=== PATIENT | male | born 1960 | race African-American/Black ===

== ENCOUNTER 2016-08-15 00:10 | Inpatient (IN) | payer MEDICAID ==
[~2016-08-15] VITALS: Ht 182.9 cm; Wt 97.5 kg
[~2016-08-15 00:10] MED LIST: AMLO10TA80 PO; ASPI-1035 PO; ATOR80TA76 PO; CARV20CP PO; CLON0.2T PO; FERR-63 PO; FOLI1CAP6 PO; FURO40TA5 PO; GABA-529 PO; HYDR-4135 PO; IBUP100O15 PO; ISOS60TA4 PO; LACT10SO6 PO; NIFE60TA64 PO; RENA-VITE PO; SEVE800T8 PO; TAMS0.4C31 PO
[2016-08-15] MEDS ORDERED: ASPIRIN 81MG TABLET PO ONE (01:30)
[2016-08-15] MEDS ORDERED: NITROGLYCERIN 0.4MG TABLET SL SL PRN (01:30)
[2016-08-15] MEDS ORDERED: HYDRALAZINE 20MG/ML VIAL IV ONE (01:30)
[2016-08-15 02:05] LABS: CHLORIDE 93 mEq/L (98-107); INDEX HEMOLYSI 2 (1-3); INDEX ICTERIC 1 (1-4); INDEX LIPEMIC 2 (1-3)
[2016-08-15 02:11] LABS: INR 1.1; PROTHROMBIN TIME 11.3 sec
[2016-08-15 02:13] LABS: ALANINE AMINOTRANSFERASE 27 IU/L (13-61); ALBUMIN 3.2 g/dL (3.4-5.0); ANION GAP 21; CALCIUM 8.2 mg/dL (8.5-10.1); CARBON DIOXIDE 24 mEq/L (21-32); ETHANOL BLOOD < 10 mg/dL; LIPASE 242 IU/L (73-393); UREA NITROGEN BLOOD 65 mg/dL (7-21); eGFR 5 mL/min (>60)
[2016-08-15 02:15] LABS: BASOPHILS % 0.5 % (0.0-2.0); DIFFERENTIAL COMMENT 0; EOSINOPHILS % 1.5 % (0.0-5.0); HEMATOCRIT. 32.1 % (42.0-52.0); HEMOGLOBIN. 10.3 g/dL (14.0-18.0); LYMPHOCYTES % 24.7 % (20.0-50.0); MEAN CORPUSCULAR HEMOGLOBIN 25.4 pg (28.0-32.0); MEAN CORPUSCULAR HGB CONC 32.3 g/dL (31.0-37.0); MEAN CORPUSCULAR VOLUME 78.7 fL (80.0-94.0); MEAN PLATELET VOLUME 8.2 fl (7.4-10.4); MONOCYTES % 13.9 % (2.0-8.0); NEUTROPHILS % 59.4 % (40.0-76.0); PLATELET 262 x1000/uL (130-400); RED BLOOD CELL COUNT 4.07 mill/uL (4.7-6.1); RED CELL DISTRIBUTION WIDTH 20.4 % (11.6-14.6); WHITE BLOOD COUNT 4.3 x1000/uL (4.5-11.0)
[2016-08-15] MEDS ORDERED: SODIUM CHLORIDE 0.9% 1000ML BAG (SEPSIS BOLUS) IV NR (02:15)
[2016-08-15 02:30] LABS: NT PRO B-TYPE NATRIURETIC PEP 16240 pg/mL (5-125); TROPONIN I < 0.02 ng/mL (0.00-0.04)
[2016-08-15 09:00] VITALS: BP 207/111
[2016-08-15] MEDS ORDERED: DOCUSATE SODIUM 100MG CAPSULE PO PRN (09:00)
[2016-08-15] MEDS ORDERED: IPRATROPIUM/ALBUTEROL 0.5-3(2.5)MG/3ML NEB INH PRN (09:00)
[2016-08-15] MEDS ORDERED: CLONIDINE 0.1MG TABLET PO PRN (09:00)
[2016-08-15] MEDS ORDERED: GUAIFENESIN 200MG/10ML SUGAR FREE UDC PO PRN (09:00)
[2016-08-15] MEDS ORDERED: ACETAMINOPHEN 650MG/20.3ML UDC GT PRN (09:00)
[2016-08-15] MEDS ORDERED: NA PHOS,M-B/NA PHOS,DI-BA ENEMA 118ML PR PRN (09:00)
[2016-08-15] MEDS ORDERED: DEXTROSE 50% WATER 50ML SYRINGE IV PRN (09:00)
[2016-08-15] MEDS ORDERED: DIPHENHYDRAMINE 50MG/ML VIAL IV PRN ×2 (09:00→19:00)
[2016-08-15] MEDS ORDERED: ACETAMINOPHEN 325MG TABLET PO PRN (09:00)
[2016-08-15] MEDS ORDERED: MAGNESIUM/ALUMINUM HYDROXIDE/SIMETHICONE 30ML UDC PO PRN (09:00)
[2016-08-15] MEDS ORDERED: ONDANSETRON HCL 4MG/2ML VIAL IV PRN (09:00)
[2016-08-15] MEDS ORDERED: ACETAMINOPHEN 650MG SUPP PR PRN (09:00)
[2016-08-15] MEDS: GABAPENTIN 100MG CAPSULE PO SCH ×4 (09:15→20:58)
[2016-08-15] MEDS: ISOSORBIDE MONONITRATE 60MG TABLET SR 24HR PO SCH (09:29)
[2016-08-15] MEDS: HYDRALAZINE HCL 25MG TABLET PO SCH ×2 (09:29→20:58)
[2016-08-15] MEDS: AMLODIPINE 10MG TABLET PO SCH (09:30)
[2016-08-15] MEDS: HYDROCODONE/ACETAMINOPHEN 5/325MG TABLET PO PRN (09:31)
[2016-08-15 10:47] VITALS: BP 207/111
[2016-08-15 11:59] VITALS: BP 180/103
[2016-08-15] MEDS: BLOOD SUGAR DIAGNOSTIC STRIP TEST SCH ×4 (12:11→20:09)
[2016-08-15] MEDS: INSULIN LISPRO 100 UNITS/ML SUBCUT SCH ×4 (12:24→21:01)
[2016-08-15] MEDS: SODIUM CHLORIDE 0.9% INJ 3ML FLUSH IVF SCH ×2 (13:12→20:58)
[2016-08-15] MEDS: CLONIDINE 0.2MG TABLET PO SCH ×2 (13:12→20:58)
[2016-08-15] MEDS ORDERED: FOLI0.8T23 PO (13:23)
[2016-08-15 15:18] LABS: GLUCOSE URINE 1+ (NEGATIVE); KETONES URINE NEGATIVE (NEGATIVE); LEUKOCYTE ESTERASE URINE NEGATIVE (NEGATIVE); NITRITE URINE NEGATIVE (NEGATIVE); OCCULT BLOOD URINE TRACE (NEGATIVE); PROTEIN URINE 2+ (NEGATIVE); SPECIFIC GRAVITY URINE 1.007 (1.005-1.030); UROBILINOGEN URINE 0.2 E.U./dL (0.2-1.0)
[2016-08-15 15:24] LABS: CLARITY URINE CLEAR (CLEAR); COLOR URINE YELLOW (YELLOW)
[2016-08-15 15:25] LABS: BACTERIA URINE TRACE; RBC URINE 0-2 /hpf (0-2); SQUAMOUS EPITHELIAL CELL URINE NONE SEEN /lpf (RARE/1+); WBC URINE 0-2 /hpf (0-2)
[2016-08-15 15:28] LABS: *AMPHETAMINES SCREEN URINE NEGATIVE (NEGATIVE); *BARBITURATES SCREEN URINE NEGATIVE (NEGATIVE); *BENZODIAZEPINES SCREEN URINE NEGATIVE (NEGATIVE); *COCAINE SCREEN URINE NEGATIVE (NEGATIVE); CANNABINOID URINE SCREEN NEGATIVE (NEGATIVE); ECSTASY MDMA SCREEN URINE NEGATIVE (NEGATIVE); METHADONE URINE SCREEN NEGATIVE (NEGATIVE); OPIATES URINE SCREEN NEGATIVE (NEGATIVE); PHENCYCLIDINE URINE SCREEN NEGATIVE (NEGATIVE)
[2016-08-15 16:00] VITALS: BP 175/112
[2016-08-15] MEDS ORDERED: DIPHENHYDRAMINE 50MG CAPSULE PO PRN (16:30)
[2016-08-15] MEDS: ENOXAPARIN 40MG/0.4ML SYR SUBCUT SCH (16:33)
[2016-08-15 20:00] VITALS: BP 190/108
[2016-08-16] VITALS (15 sets, daily range): BP systolic 131–220; BP diastolic 80–122
[2016-08-16] MEDS ORDERED: HYDRALAZINE 20MG/ML VIAL IV PRN (05:15)
[2016-08-16] MEDS: GABAPENTIN 100MG CAPSULE PO SCH ×2 (06:00→13:17)
[2016-08-16] MEDS: BLOOD SUGAR DIAGNOSTIC STRIP TEST SCH ×3 (06:09→17:48)
[2016-08-16] MEDS: SODIUM CHLORIDE 0.9% INJ 3ML FLUSH IVF SCH ×2 (06:09→13:12)
[2016-08-16] MEDS: CLONIDINE 0.2MG TABLET PO SCH ×2 (06:09→13:23)
[2016-08-16] MEDS: INSULIN LISPRO 100 UNITS/ML SUBCUT SCH ×3 (08:10→17:48)
[2016-08-16] MEDS: AMLODIPINE 10MG TABLET PO SCH (08:39)
[2016-08-16] MEDS: HYDRALAZINE HCL 25MG TABLET PO SCH (08:39)
[2016-08-16] MEDS: ISOSORBIDE MONONITRATE 60MG TABLET SR 24HR PO SCH (08:40)
[2016-08-16] MEDS ORDERED: TAMSULOSIN HCL 0.4MG SR CAPSULE PO SCH (09:00)
[2016-08-16] MEDS ORDERED: FENTANYL CITRATE/PF 50MCG/ML 2ML VIAL IV SCH ×2 (10:45→11:15)
[2016-08-16] MEDS ORDERED: DIPHENHYDRAMINE 50MG/ML VIAL IV SCH (10:45)
[2016-08-16] MEDS ORDERED: CEFAZOLIN 1000MG PREMIX 50 ML IV SCH (11:30)
[2016-08-16] MEDS: HYDROCODONE/ACETAMINOPHEN 5/325MG TABLET PO PRN (14:18)
[2016-08-16] MEDS ORDERED: HEPARIN SODIUM 1,000 UNIT/1ML VIAL IV SCH (15:45)
[2016-08-16 16:03] LABS: BASOPHILS % 0.5 % (0.0-2.0); DIFFERENTIAL COMMENT 0; EOSINOPHILS % 1.4 % (0.0-5.0); HEMATOCRIT. 30.2 % (42.0-52.0); HEMOGLOBIN. 9.7 g/dL (14.0-18.0); LYMPHOCYTES % 20.3 % (20.0-50.0); MEAN CORPUSCULAR HEMOGLOBIN 25.4 pg (28.0-32.0); MEAN CORPUSCULAR HGB CONC 32.1 g/dL (31.0-37.0); MEAN CORPUSCULAR VOLUME 79.2 fL (80.0-94.0); MEAN PLATELET VOLUME 7.9 fl (7.4-10.4); NEUTROPHILS % 66.8 % (40.0-76.0); PLATELET 253 x1000/uL (130-400); RED BLOOD CELL COUNT 3.81 mill/uL (4.7-6.1); RED CELL DISTRIBUTION WIDTH 20.4 % (11.6-14.6); WHITE BLOOD COUNT 4.7 x1000/uL (4.5-11.0)
[2016-08-16 16:22] LABS: ALANINE AMINOTRANSFERASE 33 IU/L (13-61); ALBUMIN 3.2 g/dL (3.4-5.0); ANION GAP 23; CALCIUM 8.2 mg/dL (8.5-10.1); CARBON DIOXIDE 23 mEq/L (21-32); CHLORIDE 94 mEq/L (98-107); CREATINE KINASE MB FRACTION 3.5 ng/mL (0.5-3.6); INDEX HEMOLYSI 1 (1-3); INDEX ICTERIC 1 (1-4); INDEX LIPEMIC 1 (1-3); LDL CHOLESTEROL 41 mg/dL (5-100); NT PRO B-TYPE NATRIURETIC PEP 18153 pg/mL (5-125); TRIGLYCERIDE 288 mg/dL (0-150); TROPONIN I < 0.02 ng/mL (0.00-0.04); eGFR 5 mL/min (>60)
[2016-08-16 16:25] LABS: CREATINE KINASE 156 IU/L (39-308); HDL CHOLESTEROL 28 mg/dL (40-59); UREA NITROGEN BLOOD 79 mg/dL (7-21)
[2016-08-16 16:28] LABS: T4 FREE 0.98 ng/dL (0.76-1.46)
[2016-08-16] MEDS ORDERED: MORPHINE SULFATE 2 MG/ML CPJ (NOT FOR IM USE) IV NR (16:45)
[2016-08-16] MEDS: ENOXAPARIN 40MG/0.4ML SYR SUBCUT SCH (17:00)
[2016-08-16] MEDS ORDERED: TRAM50TA73 PO (19:00)
== END 2016-08-16 19:40 | disposition home or self-care (01) | DRG 167 ==
LOC: ER 05:09 → 5WST 05:10 → 7WST 16:50
PROVIDERS: ADMIT Family Medicine; ATTEND Family Medicine
PROC: 02H633Z Insertion of Infusion Device into Right Atrium, Percutaneous Approach (ICD-10-PCS; principal; 2016-08-16)
PROC: B2141ZZ Fluoroscopy of Right Heart using Low Osmolar Contrast (ICD-10-PCS; 2016-08-16)
PROC: 02PA33Z Removal of Infusion Device from Heart, Percutaneous Approach (ICD-10-PCS; 2016-08-16)
PROC: B244ZZZ Ultrasonography of Right Heart (ICD-10-PCS; 2016-08-16)
PROC: 5A1D00Z (ICD-10-PCS; 2016-08-16)
DX: T82.49XA Other complication of vascular dialysis catheter, initial encounter (principal); I13.2 Hypertensive heart and chronic kidney disease with heart failure and with stage 5 chronic kidney disease, or end stage renal disease; E11.22 Type 2 diabetes mellitus with diabetic chronic kidney disease; N18.6 End stage renal disease; Y84.1 Kidney dialysis as the cause of abnormal reaction of the patient, or of later complication, without mention of misadventure at the time of the procedure; R07.9 Chest pain, unspecified; E44.1 Mild protein-calorie malnutrition; D63.8 Anemia in other chronic diseases classified elsewhere; E66.9 Obesity, unspecified; E78.5 Hyperlipidemia, unspecified; F17.210 Nicotine dependence, cigarettes, uncomplicated; I16.0 Hypertensive urgency; I50.9 Heart failure, unspecified; Z68.29 Body mass index [BMI] 29.0-29.9, adult; Z82.49 Family history of ischemic heart disease and other diseases of the circulatory system; Z91.19 Patient's noncompliance with other medical treatment and regimen; Y92.89 Other specified places as the place of occurrence of the external cause; Z99.2 Dependence on renal dialysis
CPT/HCPCS: 36415; 36558; 36589; 70450; 71010; 75827; 76937; 77001; 80053; 80061; 80305; 81001; 82550; 82553; 82962; 83036; 83605; 83690; 83880; 84439; 84443; 84484; 85025; 85379; 85610; 86850; 86900; 93005; 93970; 96374; 99291; C1725; C1750; C1769; G0482; J0360; J0690; J1200; J1644; J1650; J1815; J2270; L8514; Q0163

== ENCOUNTER 2016-09-25 21:53 | Emergency (ER) | payer MEDICAID ==
[~2016-09-25] VITALS: Ht 182.9 cm; Wt 98.0 kg
[~2016-09-25 21:53] MED LIST changes: -FERR-63 PO; +FOLI0.8T23 PO; -FOLI1CAP6 PO; -GABA-529 PO; -IBUP100O15 PO; -LACT10SO6 PO; -RENA-VITE PO; +TRAM50TA73 PO
[2016-09-25] MEDS ORDERED: FAMOTIDINE 20MG/2ML VIAL IV STA (22:46)
[2016-09-25] MEDS ORDERED: SODIUM CHLORIDE 0.9% 500 ML IV ONE (22:46)
[2016-09-25] MEDS ORDERED: ONDANSETRON HCL 4MG/2ML VIAL IV STA (22:46)
[2016-09-25] MEDS ORDERED: DIPHENHYDRAMINE 25MG CAPSULE PO ONE (23:00)
[2016-09-25 23:21] LABS: BASOPHILS % 1.5 % (0.0-2.0); EOSINOPHILS % 1.2 % (0.0-5.0); HEMATOCRIT. 40.7 % (42.0-52.0); HEMOGLOBIN. 12.9 g/dL (14.0-18.0); LYMPHOCYTES % 23.5 % (20.0-50.0); MEAN CORPUSCULAR HEMOGLOBIN 25.4 pg (28.0-32.0); MEAN CORPUSCULAR HGB CONC 31.7 g/dL (31.0-37.0); MEAN PLATELET VOLUME 7.9 fl (7.4-10.4); MONOCYTES % 12.6 % (2.0-8.0); NEUTROPHILS % 61.2 % (40.0-76.0); PLATELET 257 x1000/uL (130-400); RED BLOOD CELL COUNT 5.08 mill/uL (4.7-6.1); RED CELL DISTRIBUTION WIDTH 19.7 % (11.6-14.6); WHITE BLOOD COUNT 6.1 x1000/uL (4.5-11.0)
[2016-09-25 23:24] LABS: CHLORIDE 95 mEq/L (98-107); INDEX HEMOLYSI 1 (1-3); INDEX ICTERIC 1 (1-4); INDEX LIPEMIC 1 (1-3)
[2016-09-25 23:26] LABS: INR 1.1; PROTHROMBIN TIME 11.7 sec
[2016-09-25 23:32] LABS: ALANINE AMINOTRANSFERASE 31 IU/L (13-61); ALBUMIN 3.9 g/dL (3.4-5.0); CALCIUM 8.6 mg/dL (8.5-10.1); CARBON DIOXIDE 24 mEq/L (21-32); LIPASE 740 IU/L (73-393); UREA NITROGEN BLOOD 61 mg/dL (7-21); eGFR 5 mL/min (>60)
[2016-09-25 23:36] LABS: ANION GAP 22
[2016-09-26] MEDS ORDERED: SODIUM POLYSTYRENE SULFONATE 15 G/60 ML BOT PO ONE
[2016-09-26 01:33] VITALS: BP 173/96
== END 2016-09-26 02:09 | disposition home or self-care (01) ==
LOC: ER 22:44
DX: K86.0 Alcohol-induced chronic pancreatitis (principal); I12.9 Hypertensive chronic kidney disease with stage 1 through stage 4 chronic kidney disease, or unspecified chronic kidney disease; E87.5 Hyperkalemia; R11.2 Nausea with vomiting, unspecified; R10.13 Epigastric pain; E11.9 Type 2 diabetes mellitus without complications; F17.200 Nicotine dependence, unspecified, uncomplicated; Z99.2 Dependence on renal dialysis; Z79.82 Long term (current) use of aspirin; Z79.899 Other long term (current) drug therapy
CPT/HCPCS: 36415; 80053; 83605; 83690; 85025; 85610; 93005; 96361; 96374; 96375; 99285; G0482; J2405; J3490; J7040; Z7610; J7030; Q0163

== ENCOUNTER 2016-11-18 23:35 | Emergency (ER) | payer MEDICAID ==
[~2016-11-18] VITALS: Ht 182.9 cm; Wt 95.0 kg
[~2016-11-18 23:35] MED LIST changes: -AMLO10TA80 PO; -ASPI-1035 PO; +ATOR-2 PO; -ATOR80TA76 PO; -CARV20CP PO; +CARV25TA47 PO; -FURO40TA5 PO; +GABA-529 PO; -ISOS60TA4 PO; -NIFE60TA64 PO
[2016-11-19 00:05] VITALS: BP 180/94
== END 2016-11-19 02:00 | disposition home or self-care (01) ==
LOC: ER 23:35
DX: E87.70 Fluid overload, unspecified (principal); E11.9 Type 2 diabetes mellitus without complications; I12.0 Hypertensive chronic kidney disease with stage 5 chronic kidney disease or end stage renal disease; E11.22 Type 2 diabetes mellitus with diabetic chronic kidney disease; N18.6 End stage renal disease
CPT/HCPCS: 99283; Z7610

== ENCOUNTER 2017-02-09 04:55 | Inpatient (IN) | payer MEDICAID ==
[~2017-02-09] VITALS: Ht 182.9 cm; Wt 111.6 kg
[2017-02-09] MEDS ORDERED: MORPHINE SULFATE 4 MG/ML CPJ (NOT FOR IM USE) IV STA (07:56)
[2017-02-09] MEDS ORDERED: ONDANSETRON HCL 4MG/2ML VIAL IV STA (07:56)
[2017-02-09 08:23] LABS: CARBON DIOXIDE 21 mEq/L (21-32); CHLORIDE 93 mEq/L (98-107)
[2017-02-09 08:24] LABS: INR 1.2; PARTIAL THROMBOPLASTIN TIME 32.9 sec (23.4-31.0); PROTHROMBIN TIME 12.4 sec (9.4-11.6)
[2017-02-09 08:35] LABS: HEMATOCRIT. 38.2 % (42.0-52.0); HEMOGLOBIN. 12.3 g/dL (14.0-18.0); MEAN CORPUSCULAR VOLUME 77.4 fL (80.0-94.0); MEAN PLATELET VOLUME 8.9 fl (7.4-10.4); PLATELET 177 x1000/uL (130-400); RED BLOOD CELL COUNT 4.94 mill/uL (4.7-6.1); RED CELL DISTRIBUTION WIDTH 16.8 % (11.6-14.6)
[2017-02-09] MEDS ORDERED: SODIUM BICARBONATE 8.4% 1 MEQ/ML 50ML SYR IV ONE (08:45)
[2017-02-09] MEDS ORDERED: INSULIN REGULAR (HUMULIN R) 300UNITS/3ML IV ONE (08:45)
[2017-02-09] MEDS ORDERED: DEXTROSE 50% WATER 50ML SYRINGE IV ONE (08:45)
[2017-02-09 09:32] LABS: PLATELET ESTIMATE NORMAL
[2017-02-09] MEDS ORDERED: MAGNESIUM/ALUMINUM HYDROXIDE/SIMETHICONE 30ML UDC PO PRN (12:00)
[2017-02-09] MEDS ORDERED: ACETAMINOPHEN 325MG TABLET PO PRN (12:00)
[2017-02-09] MEDS ORDERED: CLONIDINE 0.1MG TABLET PO PRN (12:00)
[2017-02-09] MEDS ORDERED: IPRATROPIUM/ALBUTEROL 0.5-3(2.5)MG/3ML NEB INH PRN (12:00)
[2017-02-09] MEDS ORDERED: ONDANSETRON HCL 4MG/2ML VIAL IV PRN (12:00)
[2017-02-09] MEDS ORDERED: NIFEDIPINE XL 60MG TAB PO SCH (12:00)
[2017-02-09] MEDS ORDERED: DEXTROSE 50% WATER 50ML SYRINGE IV PRN ×2 (15:15→16:30)
[2017-02-09 16:18] VITALS: BP 193/110
[2017-02-09 16:19] VITALS: BP 193/110
[2017-02-09] MEDS ORDERED: ISOS30TA6 PO (16:34)
[2017-02-09] MEDS: INSULIN LISPRO 100 UNITS/ML SUBCUT SCH ×2 (16:40→20:56)
[2017-02-09] MEDS: BLOOD SUGAR DIAGNOSTIC STRIP TEST SCH ×2 (16:40→20:51)
[2017-02-09] MEDS ORDERED: BLOOD SUGAR DIAGNOSTIC STRIP TEST SCH (17:00)
[2017-02-09] MEDS: HYDROCODONE/ACETAMINOPHEN 5/325MG TABLET PO PRN ×2 (17:05→22:00)
[2017-02-09] MEDS ORDERED: MEDICATION NOT ON FORMULARY EA (Atorvastatin Calcium 80 MG) PO SCH (17:30)
[2017-02-09] MEDS ORDERED: HYDRALAZINE 20MG/ML VIAL IV PRN (17:30)
[2017-02-09 18:00] VITALS: BP 181/96
[2017-02-09] MEDS ORDERED: INSULIN LISPRO 100 UNITS/ML SUBCUT SCH (18:20)
[2017-02-09] MEDS: CLONIDINE 0.2MG TABLET PO SCH (19:13)
[2017-02-09 19:59] LABS: *AMPHETAMINES SCREEN URINE NEGATIVE (NEGATIVE); *BARBITURATES SCREEN URINE NEGATIVE (NEGATIVE); *BENZODIAZEPINES SCREEN URINE NEGATIVE (NEGATIVE); *COCAINE SCREEN URINE NEGATIVE (NEGATIVE); CANNABINOID URINE SCREEN NEGATIVE (NEGATIVE); METHADONE URINE SCREEN NEGATIVE (NEGATIVE); OPIATES URINE SCREEN NEGATIVE (NEGATIVE); PHENCYCLIDINE URINE SCREEN NEGATIVE (NEGATIVE)
[2017-02-09 20:00] VITALS: BP 165/81
[2017-02-09] MEDS: GABAPENTIN 100MG CAPSULE PO SCH (20:22)
[2017-02-09] MEDS: ATORVASTATIN CALCIUM 40MG TABLET PO SCH (20:22)
[2017-02-09] MEDS: TRAMADOL 50MG TABLET PO PRN (20:26)
[2017-02-09] MEDS: TAMSULOSIN HCL 0.4MG SR CAPSULE PO SCH (20:46)
[2017-02-09] MEDS: CARVEDILOL 25MG TABLET PO SCH (20:55)
[2017-02-09] MEDS ORDERED: CLONIDINE 0.2MG TABLET PO SCH (21:00)
[2017-02-09] MEDS: HYDRALAZINE HCL 50MG TABLET PO SCH (21:59)
[2017-02-09 22:00] VITALS: BP 184/97
[2017-02-09] MEDS: ISOSORBIDE MONONITRATE 30MG TABLET SR 24HR PO SCH (23:22)
[2017-02-10] VITALS (12 sets, daily range): BP systolic 123–183; BP diastolic 65–90
[2017-02-10] MEDS: CLONIDINE 0.2MG TABLET PO SCH ×3 (02:37→17:00)
[2017-02-10] MEDS: HYDROCODONE/ACETAMINOPHEN 5/325MG TABLET PO PRN ×4 (04:35→16:36)
[2017-02-10] MEDS: BLOOD SUGAR DIAGNOSTIC STRIP TEST SCH ×4 (06:22→21:26)
[2017-02-10] MEDS: INSULIN LISPRO 100 UNITS/ML SUBCUT SCH ×4 (06:22→21:31)
[2017-02-10] MEDS: FOLIC ACID/VITAMIN B COMP W-C TABLET PO SCH (07:53)
[2017-02-10] MEDS: TRAMADOL 50MG TABLET PO PRN (07:53)
[2017-02-10] MEDS: CARVEDILOL 25MG TABLET PO SCH ×2 (07:54→21:17)
[2017-02-10] MEDS: NIFEDIPINE XL 60MG TAB PO SCH (07:54)
[2017-02-10] MEDS: GABAPENTIN 100MG CAPSULE PO SCH ×3 (07:54→16:35)
[2017-02-10] MEDS: ISOSORBIDE MONONITRATE 30MG TABLET SR 24HR PO SCH (07:54)
[2017-02-10] MEDS ORDERED: VANCOMYCIN 1500MG in DEXTROSE 5% WATER 250ML IV SCH (08:00)
[2017-02-10] MEDS: HYDRALAZINE HCL 50MG TABLET PO SCH ×2 (09:25→23:03)
[2017-02-10] MEDS: MORPHINE SULFATE 4 MG/ML CPJ (NOT FOR IM USE) IV PRN ×3 (12:07→21:18)
[2017-02-10] MEDS: SEVELAMER CARBONATE 800 MG TABLET PO SCH (16:35)
[2017-02-10] MEDS: ATORVASTATIN CALCIUM 40MG TABLET PO SCH (21:17)
[2017-02-10] MEDS: TAMSULOSIN HCL 0.4MG SR CAPSULE PO SCH (21:17)
[2017-02-11] VITALS (13 sets, daily range): BP systolic 118–148; BP diastolic 62–101
[2017-02-11] MEDS: HYDROCODONE/ACETAMINOPHEN 5/325MG TABLET PO PRN ×3 (00:59→17:41)
[2017-02-11] MEDS: CLONIDINE 0.2MG TABLET PO SCH ×3 (01:37→17:28)
[2017-02-11] MEDS: BLOOD SUGAR DIAGNOSTIC STRIP TEST SCH ×4 (05:50→21:20)
[2017-02-11 07:21] LABS: INR 1.1; PARTIAL THROMBOPLASTIN TIME 35.7 sec (23.4-31.0); PROTHROMBIN TIME 11.7 sec (9.4-11.6)
[2017-02-11 07:25] LABS: PHOSPHORUS 7.6 mg/dL (2.5-4.9)
[2017-02-11 07:44] LABS: HEMATOCRIT. 36.8 % (42.0-52.0); HEMOGLOBIN. 11.7 g/dL (14.0-18.0); MEAN CORPUSCULAR VOLUME 78.4 fL (80.0-94.0); MEAN PLATELET VOLUME 9.3 fl (7.4-10.4); PLATELET 171 x1000/uL (130-400); RED CELL DISTRIBUTION WIDTH 16.9 % (11.6-14.6)
[2017-02-11] MEDS: INSULIN LISPRO 100 UNITS/ML SUBCUT SCH ×4 (07:47→21:27)
[2017-02-11] MEDS: SEVELAMER CARBONATE 800 MG TABLET PO SCH ×3 (07:48→17:28)
[2017-02-11] MEDS: FOLIC ACID/VITAMIN B COMP W-C TABLET PO SCH (08:05)
[2017-02-11] MEDS: NIFEDIPINE XL 60MG TAB PO SCH (08:06)
[2017-02-11] MEDS: CARVEDILOL 25MG TABLET PO SCH ×2 (08:06→21:14)
[2017-02-11] MEDS: GABAPENTIN 100MG CAPSULE PO SCH ×3 (08:06→17:28)
[2017-02-11] MEDS: ISOSORBIDE MONONITRATE 30MG TABLET SR 24HR PO SCH (08:06)
[2017-02-11] MEDS ORDERED: SODIUM BICARBONATE 4% (2.4MEQ) 5ML VIAL IV ONE (09:14)
[2017-02-11] MEDS ORDERED: LIDOCAINE HCL 1% 20ML VIAL (Pyxis) INJ ONE (09:14)
[2017-02-11] MEDS: HYDRALAZINE HCL 50MG TABLET PO SCH ×2 (11:08→23:09)
[2017-02-11] MEDS ORDERED: SEVELAMER CARBONATE 800 MG TABLET PO SCH (12:20)
[2017-02-11] MEDS: MORPHINE SULFATE 4 MG/ML CPJ (NOT FOR IM USE) IV PRN ×2 (14:10→19:36)
[2017-02-11] MEDS ORDERED: VANCOMYCIN 1 G PREMIX 200 ML IV SCH (15:00)
[2017-02-11 15:27] LABS: PLATELET ESTIMATE NORMAL
[2017-02-11] MEDS: TAMSULOSIN HCL 0.4MG SR CAPSULE PO SCH (21:14)
[2017-02-11] MEDS: ATORVASTATIN CALCIUM 40MG TABLET PO SCH (21:14)
[2017-02-11] MEDS: HEPARIN 5000 UNITS/ML VIAL SUBCUT SCH (21:15)
[2017-02-12] VITALS (13 sets, daily range): BP systolic 123–157; BP diastolic 76–85
[2017-02-12] MEDS: HYDROCODONE/ACETAMINOPHEN 5/325MG TABLET PO PRN ×2 (02:05→06:16)
[2017-02-12] MEDS: CLONIDINE 0.2MG TABLET PO SCH ×3 (02:06→17:30)
[2017-02-12] MEDS: MORPHINE SULFATE 4 MG/ML CPJ (NOT FOR IM USE) IV PRN ×2 (04:15→09:33)
[2017-02-12] MEDS: BLOOD SUGAR DIAGNOSTIC STRIP TEST SCH ×4 (06:16→21:01)
[2017-02-12 07:31] LABS: HEMATOCRIT 32.3 % (42.0-52.0); HEMOGLOBIN 10.4 g/dL (14.0-18.0); MEAN CORPUSCULAR VOLUME 77.8 fL (80.0-94.0); PLATELET 179 x1000/uL (130-400); RED BLOOD CELL COUNT 4.16 mill/uL (4.7-6.1); RED CELL DISTRIBUTION WIDTH 16.7 % (11.6-14.6)
[2017-02-12] MEDS: INSULIN LISPRO 100 UNITS/ML SUBCUT SCH ×4 (08:00→21:34)
[2017-02-12] MEDS: SEVELAMER CARBONATE 800 MG TABLET PO SCH ×3 (08:04→17:30)
[2017-02-12] MEDS: HEPARIN 5000 UNITS/ML VIAL SUBCUT SCH ×2 (09:32→21:32)
[2017-02-12] MEDS: ISOSORBIDE MONONITRATE 30MG TABLET SR 24HR PO SCH (09:33)
[2017-02-12] MEDS: GABAPENTIN 100MG CAPSULE PO SCH ×3 (09:33→17:30)
[2017-02-12] MEDS: NIFEDIPINE XL 60MG TAB PO SCH (09:33)
[2017-02-12] MEDS: CARVEDILOL 25MG TABLET PO SCH ×2 (09:34→21:32)
[2017-02-12] MEDS: FOLIC ACID/VITAMIN B COMP W-C TABLET PO SCH (09:34)
[2017-02-12] MEDS: HYDRALAZINE HCL 50MG TABLET PO SCH ×2 (11:40→21:32)
[2017-02-12] MEDS ORDERED: SODIUM POLYSTYRENE SULFONATE 15 G/60 ML BOT PO NR (11:45)
[2017-02-12] MEDS: TAMSULOSIN HCL 0.4MG SR CAPSULE PO SCH (21:31)
[2017-02-12] MEDS: ATORVASTATIN CALCIUM 40MG TABLET PO SCH (21:31)
[2017-02-13] VITALS (9 sets, daily range): BP systolic 131–168; BP diastolic 68–88
[2017-02-13] MEDS: CLONIDINE 0.2MG TABLET PO SCH ×3 (01:27→17:50)
[2017-02-13 06:12] LABS: HEMATOCRIT. 33.2 % (42.0-52.0); HEMOGLOBIN. 10.6 g/dL (14.0-18.0); MEAN CORPUSCULAR HEMOGLOBIN 24.9 pg (28.0-32.0); MEAN CORPUSCULAR VOLUME 77.7 fL (80.0-94.0); MEAN PLATELET VOLUME 8.8 fl (7.4-10.4); PLATELET 211 x1000/uL (130-400); RED BLOOD CELL COUNT 4.27 mill/uL (4.7-6.1); RED CELL DISTRIBUTION WIDTH 16.4 % (11.6-14.6)
[2017-02-13] MEDS: BLOOD SUGAR DIAGNOSTIC STRIP TEST SCH ×4 (06:36→21:00)
[2017-02-13 06:53] LABS: PHOSPHORUS 7.5 mg/dL (2.5-4.9)
[2017-02-13] MEDS: INSULIN LISPRO 100 UNITS/ML SUBCUT SCH ×4 (07:20→21:00)
[2017-02-13] MEDS: SEVELAMER CARBONATE 800 MG TABLET PO SCH ×3 (07:39→17:30)
[2017-02-13] MEDS: GABAPENTIN 100MG CAPSULE PO SCH ×3 (08:45→17:30)
[2017-02-13] MEDS: FOLIC ACID/VITAMIN B COMP W-C TABLET PO SCH (08:45)
[2017-02-13] MEDS: HEPARIN 5000 UNITS/ML VIAL SUBCUT SCH ×2 (08:45→22:10)
[2017-02-13] MEDS: ISOSORBIDE MONONITRATE 30MG TABLET SR 24HR PO SCH (08:46)
[2017-02-13] MEDS: NIFEDIPINE XL 60MG TAB PO SCH (08:46)
[2017-02-13] MEDS: CARVEDILOL 25MG TABLET PO SCH ×2 (08:46→22:05)
[2017-02-13] MEDS: HYDROCODONE/ACETAMINOPHEN 5/325MG TABLET PO PRN (09:46)
[2017-02-13] MEDS: HYDRALAZINE HCL 50MG TABLET PO SCH (11:08)
[2017-02-13 14:15] LABS: PLATELET ESTIMATE NORMAL
[2017-02-13] MEDS: TAMSULOSIN HCL 0.4MG SR CAPSULE PO SCH (22:03)
[2017-02-13] MEDS: ATORVASTATIN CALCIUM 40MG TABLET PO SCH (22:03)
[2017-02-14] VITALS (7 sets, daily range): BP systolic 129–184; BP diastolic 60–90
[2017-02-14] MEDS: HYDRALAZINE HCL 50MG TABLET PO SCH ×3 (00:10→21:01)
[2017-02-14] MEDS: CLONIDINE 0.2MG TABLET PO SCH ×3 (01:56→18:16)
[2017-02-14] MEDS: BLOOD SUGAR DIAGNOSTIC STRIP TEST SCH ×4 (06:18→21:13)
[2017-02-14] MEDS: INSULIN LISPRO 100 UNITS/ML SUBCUT SCH ×4 (07:16→21:30)
[2017-02-14] MEDS: SEVELAMER CARBONATE 800 MG TABLET PO SCH ×3 (07:34→18:12)
[2017-02-14] MEDS: HEPARIN 5000 UNITS/ML VIAL SUBCUT SCH (08:58)
[2017-02-14] MEDS: FOLIC ACID/VITAMIN B COMP W-C TABLET PO SCH (08:59)
[2017-02-14] MEDS ORDERED: CEFAZOLIN 2,000 MG in DEXT 5% WATER 100 ML IV SCH (09:00)
[2017-02-14] MEDS: ISOSORBIDE MONONITRATE 30MG TABLET SR 24HR PO SCH (09:00)
[2017-02-14] MEDS: GABAPENTIN 100MG CAPSULE PO SCH ×3 (09:00→16:43)
[2017-02-14] MEDS: CARVEDILOL 25MG TABLET PO SCH ×2 (09:00→21:07)
[2017-02-14] MEDS: NIFEDIPINE XL 60MG TAB PO SCH (09:00)
[2017-02-14 09:33] LABS: BASOPHILS % 0.2 % (0.0-2.0); EOSINOPHILS % 0.3 % (0.0-5.0); HEMOGLOBIN. 10.7 g/dL (14.0-18.0); LYMPHOCYTES % 8.4 % (20.0-50.0); MEAN CORPUSCULAR HEMOGLOBIN 24.9 pg (28.0-32.0); MEAN CORPUSCULAR VOLUME 76.8 fL (80.0-94.0); MEAN PLATELET VOLUME 7.9 fl (7.4-10.4); MONOCYTES % 13.2 % (2.0-8.0); NEUTROPHILS % 77.9 % (40.0-76.0); PLATELET 231 x1000/uL (130-400); RED BLOOD CELL COUNT 4.29 mill/uL (4.7-6.1); RED CELL DISTRIBUTION WIDTH 16.1 % (11.6-14.6)
[2017-02-14] MEDS: ATORVASTATIN CALCIUM 40MG TABLET PO SCH (21:00)
[2017-02-14] MEDS: TAMSULOSIN HCL 0.4MG SR CAPSULE PO SCH (21:10)
[2017-02-15] VITALS (10 sets, daily range): BP systolic 130–152; BP diastolic 70–84
[2017-02-15] MEDS: CLONIDINE 0.2MG TABLET PO SCH ×2 (02:00→10:00)
[2017-02-15] MEDS: BLOOD SUGAR DIAGNOSTIC STRIP TEST SCH (06:24)
[2017-02-15] MEDS: MORPHINE SULFATE 4 MG/ML CPJ (NOT FOR IM USE) IV PRN (07:02)
[2017-02-15 07:46] LABS: INR 1.1; PROTHROMBIN TIME 11.3 sec (9.4-11.6)
[2017-02-15] MEDS: SEVELAMER CARBONATE 800 MG TABLET PO SCH ×2 (07:50→12:49)
[2017-02-15] MEDS: INSULIN LISPRO 100 UNITS/ML SUBCUT SCH ×2 (07:50→12:51)
[2017-02-15 08:14] LABS: HEMOGLOBIN 10.1 g/dL (14.0-18.0); MEAN CORPUSCULAR HEMOGLOBIN 24.7 pg (28.0-32.0); MEAN CORPUSCULAR VOLUME 77.8 fL (80.0-94.0); PLATELET 245 x1000/uL (130-400); RED BLOOD CELL COUNT 4.11 mill/uL (4.7-6.1); RED CELL DISTRIBUTION WIDTH 16.2 % (11.6-14.6)
[2017-02-15] MEDS: GABAPENTIN 100MG CAPSULE PO SCH ×2 (09:00→12:56)
[2017-02-15] MEDS: NIFEDIPINE XL 60MG TAB PO SCH (09:00)
[2017-02-15] MEDS ORDERED: LIDOCAINE HCL 1% 20ML VIAL (Pyxis) INJ ONE (10:16)
[2017-02-15] MEDS ORDERED: SODIUM BICARBONATE 4% (2.4MEQ) 5ML VIAL IV ONE (10:16)
[2017-02-15] MEDS ORDERED: FENTANYL CITRATE/PF 50MCG/ML 2ML VIAL ONE (11:30)
[2017-02-15] MEDS ORDERED: FENTANYL CITRATE/PF 50MCG/ML 2ML VIAL IV ONE (11:45)
[2017-02-15] MEDS: FOLIC ACID/VITAMIN B COMP W-C TABLET PO SCH (12:47)
[2017-02-15] MEDS: CARVEDILOL 25MG TABLET PO SCH (12:48)
[2017-02-15] MEDS: HYDRALAZINE HCL 50MG TABLET PO SCH (12:52)
[2017-02-15] MEDS: ISOSORBIDE MONONITRATE 30MG TABLET SR 24HR PO SCH (12:52)
== END 2017-02-15 16:10 | disposition home or self-care (01) | DRG 721 ==
LOC: ER 04:55 → 3WST 09:08 → ENRESERV 14:48 → ER 16:25 → 6EST 02-13 15:52
PROVIDERS: ADMIT Internal Medicine; ATTEND Internal Medicine
PROC: 05PYX3Z Removal of Infusion Device from Upper Vein, External Approach (ICD-10-PCS; principal; 2017-02-11)
PROC: 02HV33Z Insertion of Infusion Device into Superior Vena Cava, Percutaneous Approach (ICD-10-PCS; 2017-02-11)
PROC: B5181ZA Fluoroscopy of Superior Vena Cava using Low Osmolar Contrast, Guidance (ICD-10-PCS; 2017-02-11)
PROC: 0JH63XZ Insertion of Tunneled Vascular Access Device into Chest Subcutaneous Tissue and Fascia, Percutaneous Approach (ICD-10-PCS; 2017-02-11)
PROC: 05HM33Z Insertion of Infusion Device into Right Internal Jugular Vein, Percutaneous Approach (ICD-10-PCS; 2017-02-15)
PROC: B513YZA Fluoroscopy of Right Jugular Veins using Other Contrast, Guidance (ICD-10-PCS; 2017-02-15)
DX: T80.211A Bloodstream infection due to central venous catheter, initial encounter (principal); A41.01 Sepsis due to Methicillin susceptible Staphylococcus aureus; N18.6 End stage renal disease; I12.0 Hypertensive chronic kidney disease with stage 5 chronic kidney disease or end stage renal disease; E11.22 Type 2 diabetes mellitus with diabetic chronic kidney disease; B95.8 Unspecified staphylococcus as the cause of diseases classified elsewhere; E66.9 Obesity, unspecified; E87.5 Hyperkalemia; E11.610 Type 2 diabetes mellitus with diabetic neuropathic arthropathy; F17.210 Nicotine dependence, cigarettes, uncomplicated; D63.8 Anemia in other chronic diseases classified elsewhere; E11.42 Type 2 diabetes mellitus with diabetic polyneuropathy; L03.116 Cellulitis of left lower limb; M48.06 Spinal stenosis, lumbar region; Y84.8 Other medical procedures as the cause of abnormal reaction of the patient, or of later complication, without mention of misadventure at the time of the procedure; Z91.19 Patient's noncompliance with other medical treatment and regimen; Z99.2 Dependence on renal dialysis; Z95.1 Presence of aortocoronary bypass graft; Z79.899 Other long term (current) drug therapy; Z68.33 Body mass index [BMI] 33.0-33.9, adult
CPT/HCPCS: 36415; 36556; 36558; 36589; 71010; 73610; 73630; 76937; 77001; 80048; 80053; 80202; 80305; 82962; 83735; 84100; 84550; 85025; 85027; 85610; 85651; 85730; 86140; 87040; 87070; 87077; 93005; 93306; 93970; 96374; 96375; 97162; 97166; 97530; 99285; C1750; C1752; C1769; C1887; J0360; J0690; J1642; J1644; J1815; J2270; J2405; J3010; J3370; J3490; J7030; J7050; J7060

== ENCOUNTER 2017-02-28 18:54 | Emergency (ER) | payer MEDICAID ==
[~2017-02-28] VITALS: Ht 175.3 cm; Wt 102.0 kg
[~2017-02-28 18:54] MED LIST changes: +ISOS30TA6 PO
[2017-02-28] MEDS ORDERED: HYDRALAZINE 20MG/ML VIAL IV ONE (19:15)
[2017-02-28 19:59] LABS: BASOPHILS % 0.9 % (0.0-2.0); EOSINOPHILS % 2.5 % (0.0-5.0); HEMATOCRIT. 29.7 % (42.0-52.0); HEMOGLOBIN. 9.6 g/dL (14.0-18.0); LYMPHOCYTES % 17.3 % (20.0-50.0); MEAN CORPUSCULAR HEMOGLOBIN 24.5 pg (28.0-32.0); MEAN CORPUSCULAR VOLUME 75.6 fL (80.0-94.0); MEAN PLATELET VOLUME 8.2 fl (7.4-10.4); MONOCYTES % 14.2 % (2.0-8.0); NEUTROPHILS % 65.1 % (40.0-76.0); PLATELET 387 x1000/uL (130-400); RED BLOOD CELL COUNT 3.93 mill/uL (4.7-6.1); RED CELL DISTRIBUTION WIDTH 16.1 % (11.6-14.6)
[2017-02-28 20:03] LABS: CHLORIDE 94 mEq/L (98-107)
[2017-02-28 20:04] LABS: INR 1.2; PROTHROMBIN TIME 12.5 sec (9.4-11.6)
[2017-02-28 20:07] LABS: CARBON DIOXIDE 29 mEq/L (21-32)
[2017-02-28 23:24] VITALS: BP 224/110
[2017-02-28] MEDS ORDERED: CLONIDINE 0.2MG TABLET PO ONE (23:30)
== END 2017-03-01 04:21 | disposition home or self-care (01) ==
LOC: ER 20:39
DX: I12.0 Hypertensive chronic kidney disease with stage 5 chronic kidney disease or end stage renal disease (principal); E11.22 Type 2 diabetes mellitus with diabetic chronic kidney disease; N18.6 End stage renal disease; M10.9 Gout, unspecified; Z99.2 Dependence on renal dialysis; Z53.29 Procedure and treatment not carried out because of patient's decision for other reasons
CPT/HCPCS: 36415; 80053; 85025; 85610; 99285; Z7610

== ENCOUNTER 2017-03-02 08:08 | Inpatient (IN) | payer MEDICAID ==
[~2017-03-02] VITALS: Ht 182.9 cm; Wt 98.0 kg
[2017-03-02] MEDS ORDERED: LORAZEPAM 1MG TABLET PO ONE (09:00)
[2017-03-02] MEDS ORDERED: VANCOMYCIN 1 G PREMIX 200 ML IV ONE (09:00)
[2017-03-02 09:51] LABS: BASOPHILS % 0.7 % (0.0-2.0); HEMATOCRIT. 29.8 % (42.0-52.0); HEMOGLOBIN. 9.5 g/dL (14.0-18.0); LYMPHOCYTES % 19.1 % (20.0-50.0); MEAN CORPUSCULAR HEMOGLOBIN 24.2 pg (28.0-32.0); MEAN PLATELET VOLUME 8.3 fl (7.4-10.4); MONOCYTES % 14.9 % (2.0-8.0); NEUTROPHILS % 63.3 % (40.0-76.0); PLATELET 381 x1000/uL (130-400); RED BLOOD CELL COUNT 3.92 mill/uL (4.7-6.1); RED CELL DISTRIBUTION WIDTH 16.7 % (11.6-14.6)
[2017-03-02 09:57] LABS: INR 1.1
[2017-03-02 09:58] LABS: CHLORIDE 95 mEq/L (98-107)
[2017-03-02 10:08] LABS: CARBON DIOXIDE 30 mEq/L (21-32); TROPONIN I < 0.02 ng/mL (0.00-0.04)
[2017-03-02] MEDS ORDERED: IPRATROPIUM/ALBUTEROL 0.5-3(2.5)MG/3ML NEB INH PRN (14:15)
[2017-03-02] MEDS ORDERED: ONDANSETRON HCL 4MG/2ML VIAL IV PRN (14:15)
[2017-03-02] MEDS ORDERED: DOCUSATE SODIUM 100MG CAPSULE PO PRN (14:15)
[2017-03-02] MEDS ORDERED: MAGNESIUM/ALUMINUM HYDROXIDE/SIMETHICONE 30ML UDC PO PRN (14:15)
[2017-03-02] MEDS ORDERED: ACETAMINOPHEN 325MG TABLET PO PRN (14:15)
[2017-03-02] MEDS ORDERED: HYDROCODONE/ACETAMINOPHEN 5/325MG TABLET PO PRN (14:15)
[2017-03-02] MEDS ORDERED: HYDRALAZINE 20MG/ML VIAL IV NR (15:45)
[2017-03-02] MEDS ORDERED: NICARDIPINE 50 MG in SODIUM CHLORIDE 0.9% 230 ML IV PRN (16:30)
[2017-03-02] MEDS ORDERED: PIPERACILLIN/TAZ 3.375G PREMIX 50 ML IV NR (16:34)
[2017-03-02 17:46] LABS: CLARITY URINE CLEAR (CLEAR); COLOR URINE YELLOW (YELLOW); GLUCOSE URINE 1+ (NEGATIVE); KETONES URINE NEGATIVE (NEGATIVE); LEUKOCYTE ESTERASE URINE NEGATIVE (NEGATIVE); NITRITE URINE NEGATIVE (NEGATIVE); OCCULT BLOOD URINE NEGATIVE (NEGATIVE); PH URINE >=9.0 (4.5-8.0); PROTEIN URINE 2+ (NEGATIVE); SPECIFIC GRAVITY URINE 1.008 (1.005-1.030); UROBILINOGEN URINE 0.2 E.U./dL (0.2-1.0)
[2017-03-02 20:00] VITALS: BP 157/94
[2017-03-02] MEDS: LACTULOSE 20G/30ML UDC PO PRN (22:07)
[2017-03-02] MEDS ORDERED: DEXTROSE 50% WATER 50ML SYRINGE IV PRN (22:15)
[2017-03-03] VITALS (8 sets, daily range): BP systolic 126–232; BP diastolic 69–113
[2017-03-03] MEDS ORDERED: TRAMADOL 50MG TABLET PO PRN (00:30)
[2017-03-03] MEDS: CARVEDILOL 25MG TABLET PO SCH ×3 (00:47→21:00)
[2017-03-03] MEDS: CLONIDINE 0.1MG TABLET PO PRN ×2 (00:47→08:36)
[2017-03-03] MEDS: HYDRALAZINE HCL 50MG TABLET PO SCH ×2 (00:48→08:35)
[2017-03-03] MEDS: CLONIDINE 0.2MG TABLET PO SCH ×4 (00:48→22:41)
[2017-03-03] MEDS ORDERED: PIPERACILLIN/TAZ 2.25G PREMIX 50 ML IV SCH (01:00)
[2017-03-03] MEDS: PIPERACILLIN/TAZ 2.25G PREMIX 50 ML IV SCH ×3 (02:10→17:24)
[2017-03-03] MEDS: SENNOSIDES/DOCUSATE SOD 8.6/50MG TABLET PO PRN ×2 (02:10→10:30)
[2017-03-03] MEDS: BLOOD SUGAR DIAGNOSTIC STRIP TEST SCH ×3 (07:24→16:55)
[2017-03-03] MEDS: INSULIN LISPRO 100 UNITS/ML SUBCUT SCH ×5 (07:24→22:42)
[2017-03-03 08:15] LABS: HEMOGLOBIN. 9.8 g/dL (14.0-18.0); MEAN CORPUSCULAR HEMOGLOBIN 24.4 pg (28.0-32.0); MEAN CORPUSCULAR VOLUME 76.8 fL (80.0-94.0); MEAN PLATELET VOLUME 8.2 fl (7.4-10.4); PLATELET 391 x1000/uL (130-400); RED BLOOD CELL COUNT 4.03 mill/uL (4.7-6.1); RED CELL DISTRIBUTION WIDTH 16.3 % (11.6-14.6)
[2017-03-03] MEDS: FOLIC ACID/VITAMIN B COMP W-C TABLET PO SCH (08:33)
[2017-03-03] MEDS: SEVELAMER CARBONATE 800 MG TABLET PO SCH ×3 (08:34→17:24)
[2017-03-03] MEDS: GABAPENTIN 100MG CAPSULE PO SCH ×3 (08:34→17:24)
[2017-03-03] MEDS: TAMSULOSIN HCL 0.4MG SR CAPSULE PO SCH (08:34)
[2017-03-03 08:39] LABS: CREATINE KINASE MB FRACTION 0.8 ng/mL (0.5-3.6); TROPONIN I 0.02 ng/mL (0.00-0.04)
[2017-03-03] MEDS ORDERED: ISOSORBIDE MONONITRATE 30MG TABLET SR 24HR PO SCH (09:00)
[2017-03-03] MEDS ORDERED: MEDICATION NOT ON FORMULARY EA (Atorvastatin Calcium 80 MG) PO SCH (09:00)
[2017-03-03] MEDS: LACTULOSE 20G/30ML UDC PO PRN (10:39)
[2017-03-03] MEDS ORDERED: DILTIAZEM HCL 5MG/ML 5ML VIAL IV PRN (10:45)
[2017-03-03] MEDS ORDERED: BISACODYL 10MG SUPP PR PRN (10:45)
[2017-03-03] MEDS ORDERED: POLYETHYLENE GLYCOL 3350 (17GM) 1 DOSE PACK PO NR (11:00)
[2017-03-03] MEDS: DILTIAZEM HCL 90MG TABLET PO SCH ×2 (12:03→17:26)
[2017-03-03] MEDS: LOSARTAN POTASSIUM 100 MG TABLET PO SCH (12:03)
[2017-03-03 13:18] LABS: PLATELET ESTIMATE NORMAL
[2017-03-03] MEDS ORDERED: GLYCERIN ADULT SUPPOSITORY PR PRN (17:00)
[2017-03-03] MEDS: ATORVASTATIN CALCIUM 40MG TABLET PO SCH (22:42)
[2017-03-04] VITALS: BP 204/101
[2017-03-04] MEDS: CLONIDINE 0.1MG TABLET PO PRN
[2017-03-04] MEDS: DILTIAZEM HCL 90MG TABLET PO SCH ×4 (00:01→18:20)
[2017-03-04] MEDS: BLOOD SUGAR DIAGNOSTIC STRIP TEST SCH ×5 (00:02→20:25)
[2017-03-04] MEDS: PIPERACILLIN/TAZ 2.25G PREMIX 50 ML IV SCH ×3 (01:16→18:20)
[2017-03-04 04:00] VITALS: BP 180/93
[2017-03-04] MEDS: CLONIDINE 0.2MG TABLET PO SCH ×3 (06:04→21:55)
[2017-03-04 07:41] LABS: BASOPHILS % 1.9 % (0.0-2.0); EOSINOPHILS % 3.3 % (0.0-5.0); HEMOGLOBIN. 9.4 g/dL (14.0-18.0); LYMPHOCYTES % 19.6 % (20.0-50.0); MEAN CORPUSCULAR HEMOGLOBIN 24.2 pg (28.0-32.0); MEAN PLATELET VOLUME 7.9 fl (7.4-10.4); MONOCYTES % 13.5 % (2.0-8.0); NEUTROPHILS % 61.7 % (40.0-76.0); PLATELET 385 x1000/uL (130-400); RED CELL DISTRIBUTION WIDTH 16.5 % (11.6-14.6)
[2017-03-04 08:00] VITALS: BP 190/100
[2017-03-04] MEDS: TAMSULOSIN HCL 0.4MG SR CAPSULE PO SCH (08:31)
[2017-03-04] MEDS: SEVELAMER CARBONATE 800 MG TABLET PO SCH ×3 (08:31→18:20)
[2017-03-04] MEDS: GABAPENTIN 100MG CAPSULE PO SCH ×3 (08:31→16:22)
[2017-03-04] MEDS: LOSARTAN POTASSIUM 100 MG TABLET PO SCH (08:31)
[2017-03-04] MEDS: FOLIC ACID/VITAMIN B COMP W-C TABLET PO SCH (08:31)
[2017-03-04] MEDS: CARVEDILOL 25MG TABLET PO SCH ×2 (08:31→20:25)
[2017-03-04] MEDS: INSULIN LISPRO 100 UNITS/ML SUBCUT SCH ×4 (08:35→20:31)
[2017-03-04] MEDS ORDERED: VANCOMYCIN 1,750 MG in DEXT 5% WATER 250 ML IV NR (10:00)
[2017-03-04] MEDS ORDERED: VANCOMYCIN 1500MG in DEXTROSE 5% WATER 250ML IV NR (10:00)
[2017-03-04 12:00] VITALS: BP 170/89
[2017-03-04 16:00] VITALS: BP 175/90
[2017-03-04] MEDS: HYDRALAZINE HCL 50MG TABLET PO SCH ×2 (16:22→20:24)
[2017-03-04 18:25] LABS: TOTAL IRON BINDING CAPACITY 176 ug/dL (250-450)
[2017-03-04 20:00] VITALS: BP 172/85
[2017-03-04] MEDS: ATORVASTATIN CALCIUM 40MG TABLET PO SCH (20:24)
[2017-03-04 21:07] LABS: CARCINO EMBRYONIC ANTIGEN 1.2 ng/ml
[2017-03-05 00:05] VITALS: BP 187/92
[2017-03-05] MEDS: DILTIAZEM HCL 90MG TABLET PO SCH ×2 (00:28→05:37)
[2017-03-05] MEDS: PIPERACILLIN/TAZ 2.25G PREMIX 50 ML IV SCH ×2 (02:32→11:54)
[2017-03-05] MEDS: HYDRALAZINE HCL 50MG TABLET PO SCH ×2 (02:33→09:35)
[2017-03-05 04:00] VITALS: BP 188/96
[2017-03-05] MEDS: CLONIDINE 0.2MG TABLET PO SCH ×2 (05:37→13:59)
[2017-03-05] MEDS: BLOOD SUGAR DIAGNOSTIC STRIP TEST SCH ×2 (07:40→12:38)
[2017-03-05 08:00] VITALS: BP 152/67
[2017-03-05] MEDS: LOSARTAN POTASSIUM 100 MG TABLET PO SCH (09:32)
[2017-03-05] MEDS: TAMSULOSIN HCL 0.4MG SR CAPSULE PO SCH (09:32)
[2017-03-05] MEDS: FOLIC ACID/VITAMIN B COMP W-C TABLET PO SCH (09:32)
[2017-03-05] MEDS: GABAPENTIN 100MG CAPSULE PO SCH ×2 (09:33→13:07)
[2017-03-05] MEDS: SEVELAMER CARBONATE 800 MG TABLET PO SCH ×2 (09:35→13:07)
[2017-03-05] MEDS: INSULIN LISPRO 100 UNITS/ML SUBCUT SCH ×2 (09:41→13:12)
[2017-03-05] MEDS: CARVEDILOL 25MG TABLET PO SCH (11:54)
[2017-03-05 12:00] VITALS: BP 170/88
[2017-03-05] MEDS ORDERED: DILTIAZEM HCL 180MG CAPSULE CD 24HR PO SCH (12:30)
[2017-03-05] MEDS ORDERED: HYDR-523 PO (12:47)
[2017-03-05] MEDS ORDERED: HYDRALAZINE HCL 100MG TABLET PO SCH (14:00)
[2017-03-05 14:36] VITALS: BP 171/80
== END 2017-03-05 15:10 | disposition home or self-care (01) | DRG 383 ==
LOC: ER 08:08 → EDBEDREQ 08:58 → 7WST 10:49 → EDBEDREQ 10:53 → EDBEDREQSVC 10:53 → EDBEDREQTM 10:53 → ENRESERV 12:39 → CANRESERV 12:39 → EDBEDREQSVC 16:30 → EDBEDREQ 16:30 → EDBEDREQSVC 17:55 → EDBEDREQTM 17:59 → CANRESERV 18:02 → ENRESERV 18:02
PROVIDERS: ADMIT Internal Medicine; ATTEND Internal Medicine
DX: L03.116 Cellulitis of left lower limb (principal); E11.22 Type 2 diabetes mellitus with diabetic chronic kidney disease; E44.0 Moderate protein-calorie malnutrition; N18.6 End stage renal disease; I12.0 Hypertensive chronic kidney disease with stage 5 chronic kidney disease or end stage renal disease; E11.610 Type 2 diabetes mellitus with diabetic neuropathic arthropathy; E87.1 Hypo-osmolality and hyponatremia; D50.9 Iron deficiency anemia, unspecified; F17.210 Nicotine dependence, cigarettes, uncomplicated; J44.9 Chronic obstructive pulmonary disease, unspecified; D63.1 Anemia in chronic kidney disease; F41.1 Generalized anxiety disorder; K59.00 Constipation, unspecified; Z79.899 Other long term (current) drug therapy; Z99.2 Dependence on renal dialysis; Z68.29 Body mass index [BMI] 29.0-29.9, adult
CPT/HCPCS: 36415; 71010; 74000; 80048; 80053; 80061; 80202; 81001; 82378; 82550; 82553; 82607; 82728; 82962; 83540; 83550; 83605; 83615; 84443; 84484; 85025; 85044; 85610; 87040; 87086; 93005; 93970; 96365; 99285; J0360; J1815; J2543; J3370; J3490; J7030; J7050; J7060

== ENCOUNTER 2017-05-28 22:57 | Emergency (ER) | payer MEDICAID ==
[~2017-05-28] VITALS: Ht 182.9 cm; Wt 100.0 kg
[~2017-05-28 22:57] MED LIST changes: +HYDR-523 PO; -TRAM50TA73 PO; +TRAM50TA94 PO
[2017-05-29] MEDS ORDERED: ONDANSETRON HCL 4MG/2ML VIAL IV ONE (00:15)
[2017-05-29] MEDS ORDERED: LEVOFLOXACIN 750MG PREMIX 150 ML IV ONE (02:15)
[2017-05-29] MEDS ORDERED: IPRATROPIUM/ALBUTEROL 0.5-3(2.5)MG/3ML NEB HHN ONE (02:15)
[2017-05-29] MEDS ORDERED: LORAZEPAM 2MG/ML CPJ IM ONE (03:00)
[2017-05-29 04:50] VITALS: BP 189/115
== END 2017-05-29 05:06 | disposition left against medical advice (07) ==
LOC: ER 23:03 → CANBEDREQ 05-29 06:27
DX: I12.0 Hypertensive chronic kidney disease with stage 5 chronic kidney disease or end stage renal disease (principal); E11.22 Type 2 diabetes mellitus with diabetic chronic kidney disease; N18.6 End stage renal disease; Z99.2 Dependence on renal dialysis
CPT/HCPCS: 93005; 99283; J2060; J7620; Z7610

== ENCOUNTER 2017-06-03 21:44 | Emergency (ER) | payer MEDICAID ==
[~2017-06-03] VITALS: Ht 182.9 cm; Wt 100.0 kg
[2017-06-03 21:49] VITALS: BP 219/115
== END 2017-06-03 23:30 | disposition left against medical advice (07) ==
LOC: ER 22:22
DX: Z00.8 Encounter for other general examination (principal); Z53.21 Procedure and treatment not carried out due to patient leaving prior to being seen by health care provider

== ENCOUNTER 2017-06-21 21:57 | Emergency (ER) | payer MEDICAID ==
[~2017-06-21] VITALS: Ht 182.9 cm; Wt 93.0 kg
[2017-06-21] MEDS ORDERED: KETOROLAC 30MG/ML VIAL IV ONE (22:30)
[2017-06-21] MEDS ORDERED: LIDOCAINE 5% PATCH TOP SCH (23:45)
[2017-06-22 04:50] VITALS: BP 169/101
== END 2017-06-22 05:50 | disposition home or self-care (01) ==
LOC: ER 22:06
DX: M25.512 Pain in left shoulder (principal); R20.2 Paresthesia of skin; R20.0 Anesthesia of skin; I12.0 Hypertensive chronic kidney disease with stage 5 chronic kidney disease or end stage renal disease; N18.6 End stage renal disease; Z99.2 Dependence on renal dialysis; Z98.890 Other specified postprocedural states; W01.0XXA Fall on same level from slipping, tripping and stumbling without subsequent striking against object, initial encounter; Y93.89 Activity, other specified; Y92.000 Kitchen of unspecified non-institutional (private) residence as the place of occurrence of the external cause; Y99.8 Other external cause status
CPT/HCPCS: 73030; 96374; 99284; J1885; Z7610

== ENCOUNTER 2017-07-07 23:17 | Inpatient (IN) | payer MEDICAID ==
[~2017-07-07] VITALS: Ht 182.9 cm; Wt 97.5 kg
[2017-07-08 01:17] LABS: BASOPHILS % 1.3 % (0.0-2.0); EOSINOPHILS % 1.7 % (0.0-5.0); HEMATOCRIT. 33.3 % (42.0-52.0); HEMOGLOBIN. 10.6 g/dL (14.0-18.0); LYMPHOCYTES % 26.4 % (20.0-50.0); MEAN CORPUSCULAR HEMOGLOBIN 23.5 pg (28.0-32.0); MEAN CORPUSCULAR VOLUME 74.1 fL (80.0-94.0); MEAN PLATELET VOLUME 6.8 fl (7.4-10.4); MONOCYTES % 12.7 % (2.0-8.0); NEUTROPHILS % 57.9 % (40.0-76.0); PLATELET 378 x1000/uL (130-400); RED BLOOD CELL COUNT 4.49 mill/uL (4.7-6.1); RED CELL DISTRIBUTION WIDTH 19.3 % (11.6-14.6)
[2017-07-08 01:27] LABS: CHLORIDE 97 mEq/L (98-107); TROPONIN I 0.04 ng/mL (0.00-0.04)
[2017-07-08] MEDS ORDERED: LORAZEPAM 2MG/ML CPJ IV ONE ×2 (03:00→08:00)
[2017-07-08] MEDS ORDERED: LORAZEPAM 2MG/ML CPJ ONE (07:59)
[2017-07-08] MEDS ORDERED: DEXTROSE 50% WATER 50ML SYRINGE IV ONE ×2 (08:00→08:04)
[2017-07-08] MEDS ORDERED: HYDRALAZINE 20MG/ML VIAL IV ONE ×2 (08:00→12:39)
[2017-07-08] MEDS ORDERED: SODIUM BICARBONATE 8.4% 1 MEQ/ML 50ML SYR IV ONE (08:15)
[2017-07-08] MEDS ORDERED: IPRATROPIUM/ALBUTEROL 0.5-3(2.5)MG/3ML NEB INH PRN (11:45)
[2017-07-08] MEDS ORDERED: DIPHENHYDRAMINE 50MG/ML VIAL IV PRN (11:45)
[2017-07-08] MEDS ORDERED: MORPHINE SULFATE 4 MG/ML CPJ (NOT FOR IM USE) IV PRN (11:45)
[2017-07-08] MEDS ORDERED: CLONIDINE 0.1MG TABLET PO PRN (11:45)
[2017-07-08] MEDS ORDERED: ACETAMINOPHEN 325MG TABLET PO PRN (11:45)
[2017-07-08] MEDS ORDERED: HYDROCODONE/ACETAMINOPHEN 5/325MG TABLET PO PRN (11:45)
[2017-07-08] MEDS ORDERED: ONDANSETRON HCL 4MG/2ML VIAL IV PRN (11:45)
[2017-07-08] MEDS ORDERED: DEXTROSE 50% WATER 50ML SYRINGE IV PRN (11:45)
[2017-07-08 14:23] VITALS: BP 240/157
[2017-07-08 16:00] VITALS: BP 234/128
[2017-07-08] MEDS ORDERED: BLOOD SUGAR DIAGNOSTIC STRIP TEST SCH (16:50)
[2017-07-08] MEDS ORDERED: INSULIN LISPRO 100 UNITS/ML SUBCUT SCH (17:20)
[2017-07-08] MEDS ORDERED: HYDRALAZINE 20MG/ML VIAL IV PRN (17:30)
[2017-07-08 18:00] VITALS: BP 189/121
== END 2017-07-08 19:45 | disposition left against medical advice (07) | DRG 470 ==
LOC: ER 23:17 → 3WST 07-08 04:05 → CANRESERV 07-08 12:42 → ENRESERV 07-08 12:42
PROVIDERS: ADMIT Internal Medicine; ATTEND Internal Medicine
PROC: 5A1D70Z Performance of Urinary Filtration, Intermittent, Less than 6 Hours Per Day (ICD-10-PCS; principal; 2017-07-08)
DX: I12.0 Hypertensive chronic kidney disease with stage 5 chronic kidney disease or end stage renal disease (principal); N18.6 End stage renal disease; E11.22 Type 2 diabetes mellitus with diabetic chronic kidney disease; E87.5 Hyperkalemia; D63.8 Anemia in other chronic diseases classified elsewhere; E44.1 Mild protein-calorie malnutrition; Z53.21 Procedure and treatment not carried out due to patient leaving prior to being seen by health care provider; E11.610 Type 2 diabetes mellitus with diabetic neuropathic arthropathy; E87.70 Fluid overload, unspecified; M14.679 Charcot's joint, unspecified ankle and foot; Z91.19 Patient's noncompliance with other medical treatment and regimen; Z99.2 Dependence on renal dialysis; Z79.899 Other long term (current) drug therapy; Z68.29 Body mass index [BMI] 29.0-29.9, adult
CPT/HCPCS: 36415; 71045; 73630; 80048; 80053; 82962; 84484; 85025; 93005; 96374; 96375; 99285; J0360; J1200; J2060; J2270; J3490

== ENCOUNTER 2017-08-17 01:59 | Emergency (ER) | payer MEDICAID ==
[~2017-08-17] VITALS: Ht 185.4 cm; Wt 100.0 kg
[~2017-08-17 01:59] MED LIST changes: +DOCU-138 PO; +LOSA100T14 PO; +NIFE30TA94 PO
[2017-08-17 03:10] LABS: BASOPHILS % 0.5 % (0.0-2.0); EOSINOPHILS % 1.8 % (0.0-5.0); HEMATOCRIT. 26.8 % (42.0-52.0); HEMOGLOBIN. 8.7 g/dL (14.0-18.0); LYMPHOCYTES % 27.5 % (20.0-50.0); MEAN CORPUSCULAR HEMOGLOBIN 24.5 pg (28.0-32.0); MEAN PLATELET VOLUME 7.5 fl (7.4-10.4); MONOCYTES % 14.3 % (2.0-8.0); NEUTROPHILS % 55.9 % (40.0-76.0); PLATELET 277 x1000/uL (130-400); RED BLOOD CELL COUNT 3.53 mill/uL (4.7-6.1); RED CELL DISTRIBUTION WIDTH 20.3 % (11.6-14.6)
[2017-08-17 03:18] LABS: INR 1.2; PROTHROMBIN TIME 12.4 sec (9.4-11.6)
[2017-08-17 03:20] LABS: CHLORIDE 95 mEq/L (98-107)
[2017-08-17] MEDS ORDERED: INSULIN REGULAR (HUMULIN R) 300UNITS/3ML IV ONE (03:45)
[2017-08-17] MEDS ORDERED: ALBUTEROL (0.083%) 2.5MG/3ML NEB HHN ONE (03:45)
[2017-08-17] MEDS ORDERED: DEXTROSE 50% WATER 50ML SYRINGE IV ONE (03:45)
[2017-08-17] MEDS ORDERED: CLONIDINE 0.1MG TABLET PO PRN ×2 (11:00→12:15)
[2017-08-17] MEDS ORDERED: HYDROCODONE/ACETAMINOPHEN 5/325MG TABLET PO PRN ×2 (11:00→12:15)
[2017-08-17] MEDS ORDERED: IPRATROPIUM/ALBUTEROL 0.5-3(2.5)MG/3ML NEB INH PRN ×2 (11:00→12:15)
[2017-08-17] MEDS ORDERED: ACETAMINOPHEN 325MG TABLET PO PRN ×2 (11:00→12:15)
[2017-08-17] MEDS ORDERED: ONDANSETRON HCL 4MG/2ML VIAL IV PRN ×2 (11:00→12:15)
[2017-08-17 12:00] LABS: EOSINOPHILS % 1.6 % (0.0-5.0); HEMATOCRIT. 27.9 % (42.0-52.0); HEMOGLOBIN. 9.1 g/dL (14.0-18.0); LYMPHOCYTES % 23.2 % (20.0-50.0); MEAN CORPUSCULAR HEMOGLOBIN 24.9 pg (28.0-32.0); MEAN CORPUSCULAR VOLUME 75.9 fL (80.0-94.0); MEAN PLATELET VOLUME 7.2 fl (7.4-10.4); MONOCYTES % 14.8 % (2.0-8.0); NEUTROPHILS % 59.4 % (40.0-76.0); PLATELET 269 x1000/uL (130-400); RED BLOOD CELL COUNT 3.67 mill/uL (4.7-6.1); RED CELL DISTRIBUTION WIDTH 20.8 % (11.6-14.6)
[2017-08-17] MEDS ORDERED: MORPHINE SULFATE 2 MG/ML CPJ (NOT FOR IM USE) IV PRN (12:15)
[2017-08-17] MEDS ORDERED: DIPHENHYDRAMINE 50MG/ML VIAL IV PRN (12:15)
[2017-08-17] MEDS ORDERED: SODIUM POLYSTYRENE SULFONATE 15 G/60 ML BOT PO NR (13:35)
[2017-08-17 14:40] VITALS: BP 208/121
[2017-08-17] MEDS ORDERED: DEXTROSE 50% WATER 50ML SYRINGE IV PRN (15:00)
[2017-08-17] MEDS ORDERED: HYDRALAZINE 20MG/ML VIAL IV PRN (15:00)
[2017-08-17] MEDS ORDERED: BLOOD SUGAR DIAGNOSTIC STRIP TEST SCH (17:00)
[2017-08-17] MEDS ORDERED: INSULIN LISPRO 100 UNITS/ML SUBCUT SCH (18:20)
== END 2017-08-17 15:15 | disposition left against medical advice (07) ==
LOC: ER 01:59 → CANBEDREQ 20:29
DX: E87.5 Hyperkalemia (principal); N18.6 End stage renal disease; I12.0 Hypertensive chronic kidney disease with stage 5 chronic kidney disease or end stage renal disease; E87.70 Fluid overload, unspecified; E11.22 Type 2 diabetes mellitus with diabetic chronic kidney disease; F17.200 Nicotine dependence, unspecified, uncomplicated; R42 Dizziness and giddiness; D63.1 Anemia in chronic kidney disease; R06.02 Shortness of breath; Z99.2 Dependence on renal dialysis; Z79.4 Long term (current) use of insulin; Z91.14 Patient's other noncompliance with medication regimen; Z98.890 Other specified postprocedural states
CPT/HCPCS: 36415; 71045; 80048; 80053; 82962; 83880; 84484; 85025; 85610; 93005; 94640; 96374; 96375; 99291; J1815; J7611; Z7610

== ENCOUNTER 2017-09-01 03:50 | Emergency (ER) | payer MEDICAID, OTHER ==
[~2017-09-01] VITALS: Ht 185.4 cm; Wt 91.0 kg
[2017-09-01] MEDS ORDERED: NITROGLYCERIN OINT 1GM/INCH UDPKT TD STA (06:25)
[2017-09-01] MEDS ORDERED: CLONIDINE 0.2MG TABLET PO ONE (06:30)
[2017-09-01 06:52] LABS: BASOPHILS % 2.2 % (0.0-2.0); EOSINOPHILS % 1.8 % (0.0-5.0); HEMATOCRIT. 28.7 % (42.0-52.0); HEMOGLOBIN. 9.2 g/dL (14.0-18.0); LYMPHOCYTES % 27.1 % (20.0-50.0); MEAN CORPUSCULAR HEMOGLOBIN 24.2 pg (28.0-32.0); MEAN CORPUSCULAR VOLUME 75.6 fL (80.0-94.0); MEAN PLATELET VOLUME 7.1 fl (7.4-10.4); MONOCYTES % 12.7 % (2.0-8.0); NEUTROPHILS % 56.2 % (40.0-76.0); PLATELET 337 x1000/uL (130-400); RED CELL DISTRIBUTION WIDTH 19.6 % (11.6-14.6)
[2017-09-01 06:59] LABS: CHLORIDE 95 mEq/L (98-107)
[2017-09-01 07:01] LABS: INR 1.2; PARTIAL THROMBOPLASTIN TIME 31.3 sec (23.4-31.0)
[2017-09-01] MEDS ORDERED: SODIUM CHLORIDE 0.9% 250 ML IV ONE (07:21)
[2017-09-01] MEDS ORDERED: LEVOFLOXACIN 750MG PREMIX 150 ML IV ONE (07:30)
[2017-09-01 07:42] VITALS: BP 232/123
[2017-09-02] MEDS ORDERED: ASPI-1159 PO (08:09)
[2017-09-02] MEDS ORDERED: GABA-529 PO (08:09)
[2017-09-02] MEDS ORDERED: DOCU-272 PO (08:11)
[2017-09-02] MEDS ORDERED: LISI-604 PO (08:12)
[2017-09-02] MEDS ORDERED: CLON0.1T PO (08:13)
== END 2017-09-01 07:51 | disposition left against medical advice (07) ==
LOC: ER 03:50 → CANRESERV 08:51 → ENRESERV 08:51 → CANBEDREQ 10:01
DX: I21.4 Non-ST elevation (NSTEMI) myocardial infarction (principal); R91.8 Other nonspecific abnormal finding of lung field; I12.0 Hypertensive chronic kidney disease with stage 5 chronic kidney disease or end stage renal disease; E11.22 Type 2 diabetes mellitus with diabetic chronic kidney disease; N18.6 End stage renal disease; Z99.2 Dependence on renal dialysis
CPT/HCPCS: 36415; 71045; 80053; 84484; 85025; 85610; 85730; 93005; 99285; Z7610; J7050

== ENCOUNTER 2017-09-27 17:17 | Inpatient (IN) | payer MEDICAID ==
[~2017-09-27] VITALS: Ht 177.8 cm; Wt 89.8 kg
[~2017-09-27 17:17] MED LIST changes: +ASPI-1159 PO; +CLON0.1T PO; -CLON0.2T PO; -DOCU-138 PO; +DOCU-272 PO; +LISI-604 PO
[2017-09-27 20:06] LABS: CHLORIDE 98 mEq/L (98-107)
[2017-09-27 20:10] LABS: ETHANOL BLOOD < 10 mg/dL
[2017-09-27 20:14] LABS: BASOPHILS % 0.7 % (0.0-2.0); EOSINOPHILS % 1.7 % (0.0-5.0); HEMATOCRIT. 31.6 % (42.0-52.0); HEMOGLOBIN. 10.2 g/dL (14.0-18.0); LYMPHOCYTES % 28.3 % (20.0-50.0); MEAN CORPUSCULAR HEMOGLOBIN 24.8 pg (28.0-32.0); MEAN CORPUSCULAR VOLUME 76.7 fL (80.0-94.0); MEAN PLATELET VOLUME 7.6 fl (7.4-10.4); NEUTROPHILS % 56.3 % (40.0-76.0); PLATELET 305 x1000/uL (130-400); RED BLOOD CELL COUNT 4.12 mill/uL (4.7-6.1); RED CELL DISTRIBUTION WIDTH 20.5 % (11.6-14.6)
[2017-09-27] MEDS ORDERED: SODIUM CHLORIDE 0.9% 1,000 ML IV ONE (20:23)
[2017-09-27] MEDS ORDERED: SODIUM POLYSTYRENE SULFONATE 15 G/60 ML BOT PO ONE (20:30)
[2017-09-27] MEDS ORDERED: CALCIUM CHLORIDE 1GM/10ML SYR IV ONE (20:30)
[2017-09-27] MEDS ORDERED: INSULIN REGULAR (HUMULIN R) 300UNITS/3ML IV ONE (20:30)
[2017-09-27] MEDS ORDERED: DEXTROSE 50% WATER 50ML SYRINGE IV ONE (20:30)
[2017-09-27] MEDS ORDERED: SODIUM BICARBONATE 8.4% 1 MEQ/ML 50ML SYR IV ONE (20:30)
[2017-09-27] MEDS ORDERED: ACETAMINOPHEN 325MG TABLET PO PRN (23:15)
[2017-09-27] MEDS ORDERED: HYDRALAZINE 20MG/ML VIAL IV PRN (23:15)
[2017-09-27] MEDS ORDERED: IPRATROPIUM/ALBUTEROL 0.5-3(2.5)MG/3ML NEB INH PRN (23:15)
[2017-09-27] MEDS ORDERED: ONDANSETRON HCL 4MG/2ML VIAL IV PRN (23:15)
[2017-09-27] MEDS ORDERED: DOCUSATE SODIUM 100MG CAPSULE PO PRN (23:15)
[2017-09-27] MEDS ORDERED: HYDROCODONE/ACETAMINOPHEN 5/325MG TABLET PO PRN (23:15)
[2017-09-28] VITALS: BP 214/100
[2017-09-28] MEDS ORDERED: DEXTROSE 50% WATER 50ML SYRINGE IV PRN (01:00)
[2017-09-28 01:10] VITALS: BP 214/100
[2017-09-28] MEDS ORDERED: CLON0.2T MT (01:17)
[2017-09-28] MEDS: CLONIDINE 0.1MG TABLET PO PRN ×2 (02:06→10:30)
[2017-09-28 04:00] VITALS: BP 197/111
[2017-09-28] MEDS ORDERED: BLOOD SUGAR DIAGNOSTIC STRIP TEST SCH (07:20)
[2017-09-28] MEDS ORDERED: INSULIN LISPRO 100 UNITS/ML SUBCUT SCH (07:50)
[2017-09-28] MEDS ORDERED: ACETAMINOPHEN 650MG SUPP PR PRN (08:00)
[2017-09-28] MEDS ORDERED: MAGNESIUM/ALUMINUM HYDROXIDE/SIMETHICONE 30ML UDC PO PRN (08:00)
[2017-09-28] MEDS ORDERED: DIPHENHYDRAMINE 50MG/ML VIAL IV PRN (08:00)
[2017-09-28] MEDS ORDERED: GUAIFENESIN 200MG/10ML SUGAR FREE UDC PO PRN (08:00)
[2017-09-28] MEDS ORDERED: DOCUSATE SODIUM 100MG CAPSULE PO PRN (08:00)
[2017-09-28] MEDS ORDERED: ACETAMINOPHEN 325MG TABLET PO PRN (08:00)
[2017-09-28] MEDS ORDERED: METHYLPREDNISOLONE SOD SUCC 125 MG/2 ML VIAL IV SCH (08:00)
[2017-09-28] MEDS ORDERED: ACETAMINOPHEN 650MG/20.3ML UDC GT PRN (08:00)
[2017-09-28] MEDS ORDERED: HYDROCODONE/ACETAMINOPHEN 5/325MG TABLET PO PRN (08:00)
[2017-09-28] MEDS ORDERED: IPRATROPIUM/ALBUTEROL 0.5-3(2.5)MG/3ML NEB INH PRN (08:00)
[2017-09-28] MEDS ORDERED: NA PHOS,M-B/NA PHOS,DI-BA ENEMA 118ML PR PRN (08:00)
[2017-09-28] MEDS ORDERED: LORAZEPAM 0.5MG TABLET PO PRN (08:00)
[2017-09-28] MEDS ORDERED: HYDROCODONE/ACETAMINOPHEN 10/325MG TABLET PO PRN (08:00)
[2017-09-28] MEDS ORDERED: ONDANSETRON HCL 4MG/2ML VIAL IV PRN (08:00)
[2017-09-28 08:48] VITALS: BP 230/130
== END 2017-09-28 11:24 | disposition left against medical advice (07) | DRG 133 ==
LOC: ER 17:34 → 6WST 22:50 → EDBEDREQ 23:00 → EDBEDREQTM 23:00 → ENRESERV 23:06 → 6WST 09-28 01:42
PROVIDERS: ADMIT Internal Medicine; ATTEND Internal Medicine
DX: J96.00 Acute respiratory failure, unspecified whether with hypoxia or hypercapnia (principal); N18.6 End stage renal disease; I12.0 Hypertensive chronic kidney disease with stage 5 chronic kidney disease or end stage renal disease; E11.22 Type 2 diabetes mellitus with diabetic chronic kidney disease; F17.200 Nicotine dependence, unspecified, uncomplicated; E87.70 Fluid overload, unspecified; E87.5 Hyperkalemia; F10.10 Alcohol abuse, uncomplicated; Z53.21 Procedure and treatment not carried out due to patient leaving prior to being seen by health care provider; Z91.19 Patient's noncompliance with other medical treatment and regimen; Z91.15 Patient's noncompliance with renal dialysis; Z79.899 Other long term (current) drug therapy; Z79.82 Long term (current) use of aspirin
CPT/HCPCS: 36415; 80053; 82962; 83690; 85025; 87493; 96374; 96375; 99285; G0482; J1815; J3490

== ENCOUNTER 2017-09-30 09:18 | Inpatient (IN) | payer MEDICAID ==
[~2017-09-30] VITALS: Ht 175.3 cm; Wt 86.6 kg
[~2017-09-30 09:18] MED LIST changes: +CLON0.2T MT
[2017-09-30] MEDS ORDERED: CLONIDINE 0.2MG TABLET PO ONE (10:15)
[2017-09-30] MEDS ORDERED: HYDRALAZINE 20MG/ML VIAL IV ONE (10:30)
[2017-09-30 11:17] LABS: BASOPHILS % 0.5 % (0.0-2.0); EOSINOPHILS % 4.3 % (0.0-5.0); HEMATOCRIT. 30.8 % (42.0-52.0); HEMOGLOBIN. 9.9 g/dL (14.0-18.0); MEAN CORPUSCULAR HEMOGLOBIN 24.5 pg (28.0-32.0); MEAN CORPUSCULAR VOLUME 76.5 fL (80.0-94.0); MEAN PLATELET VOLUME 7.5 fl (7.4-10.4); MONOCYTES % 11.5 % (2.0-8.0); NEUTROPHILS % 63.7 % (40.0-76.0); PLATELET 277 x1000/uL (130-400); RED BLOOD CELL COUNT 4.03 mill/uL (4.7-6.1); RED CELL DISTRIBUTION WIDTH 19.8 % (11.6-14.6)
[2017-09-30 11:26] LABS: CHLORIDE 98 mEq/L (98-107); INR 1.1; PARTIAL THROMBOPLASTIN TIME 29.4 sec (23.4-31.0); PROTHROMBIN TIME 11.7 sec (9.4-11.6)
[2017-09-30] MEDS ORDERED: ASPIRIN 81MG TABLET PO STA (12:40)
[2017-09-30] MEDS ORDERED: NITROGLYCERIN 0.4MG TABLET SL SL PRN (12:45)
[2017-09-30] MEDS ORDERED: SODIUM POLYSTYRENE SULFONATE 15 G/60 ML BOT PO ONE (12:45)
[2017-09-30] MEDS ORDERED: SODIUM BICARBONATE 8.4% 1 MEQ/ML 50ML SYR IV ONE (12:45)
[2017-09-30] MEDS ORDERED: ONDANSETRON HCL 4MG/2ML VIAL IV ONE (13:00)
[2017-09-30] MEDS ORDERED: DEXTROSE 50% WATER 50ML SYRINGE IV PRN (15:45)
[2017-09-30] MEDS ORDERED: CLONIDINE 0.1MG TABLET PO PRN (15:45)
[2017-09-30] MEDS ORDERED: ONDANSETRON HCL 4MG/2ML VIAL IV PRN (15:45)
[2017-09-30 16:15] VITALS: BP 220/116
[2017-09-30 16:30] VITALS: BP 220/116
[2017-09-30] MEDS: INSULIN LISPRO 100 UNITS/ML SUBCUT SCH ×2 (17:40→20:18)
[2017-09-30] MEDS: CLONIDINE 0.2MG TABLET PO PRN ×2 (17:50→20:16)
[2017-09-30] MEDS: BLOOD SUGAR DIAGNOSTIC STRIP TEST SCH ×2 (17:55→20:18)
[2017-09-30 20:00] VITALS: BP 233/118
[2017-09-30] MEDS: NIFEDIPINE XL 60MG TAB PO SCH (20:17)
[2017-09-30] MEDS: HYDRALAZINE HCL 100MG TABLET PO SCH (22:44)
[2017-09-30 23:06] VITALS: BP 220/116
[2017-10-01] VITALS (7 sets, daily range): BP systolic 153–208; BP diastolic 82–112
[2017-10-01] MEDS: CLONIDINE 0.2MG TABLET PO PRN ×2 (01:48→07:58)
[2017-10-01] MEDS: HYDRALAZINE HCL 100MG TABLET PO SCH ×3 (05:28→22:14)
[2017-10-01] MEDS: INSULIN LISPRO 100 UNITS/ML SUBCUT SCH ×4 (06:11→21:00)
[2017-10-01] MEDS: BLOOD SUGAR DIAGNOSTIC STRIP TEST SCH ×4 (06:11→21:00)
[2017-10-01] MEDS: LOSARTAN POTASSIUM 100 MG TABLET PO SCH (07:57)
[2017-10-01] MEDS: FOLIC ACID/VITAMIN B COMP W-C TABLET PO SCH (07:58)
[2017-10-01] MEDS: NIFEDIPINE XL 60MG TAB PO SCH ×2 (07:58→20:49)
[2017-10-01] MEDS: ASPIRIN 81MG TABLET PO SCH (07:59)
[2017-10-01] MEDS: CLONIDINE 0.2MG TABLET PO SCH ×2 (14:15→22:14)
[2017-10-01] MEDS ORDERED: MORPHINE SULFATE 2 MG/ML CPJ (NOT FOR IM USE) IV PRN (21:45)
[2017-10-01] MEDS ORDERED: MORPHINE SULFATE 4 MG/ML CPJ (NOT FOR IM USE) IV PRN (21:46)
[2017-10-02] VITALS: BP 147/79
[2017-10-02 04:00] VITALS: BP 154/85
[2017-10-02] MEDS: HYDRALAZINE HCL 100MG TABLET PO SCH ×2 (06:29→13:19)
[2017-10-02] MEDS: CLONIDINE 0.2MG TABLET PO SCH ×2 (06:29→13:19)
[2017-10-02] MEDS: INSULIN LISPRO 100 UNITS/ML SUBCUT SCH ×2 (06:42→11:23)
[2017-10-02] MEDS: BLOOD SUGAR DIAGNOSTIC STRIP TEST SCH ×2 (06:42→11:23)
[2017-10-02 08:00] VITALS: BP 154/89
[2017-10-02] MEDS: ASPIRIN 81MG TABLET PO SCH (08:09)
[2017-10-02] MEDS: FOLIC ACID/VITAMIN B COMP W-C TABLET PO SCH (08:09)
[2017-10-02] MEDS: LOSARTAN POTASSIUM 100 MG TABLET PO SCH (08:09)
[2017-10-02] MEDS: NIFEDIPINE XL 60MG TAB PO SCH (08:09)
[2017-10-02 12:20] VITALS: BP 152/98
[2017-10-02 12:39] VITALS: BP 152/98
== END 2017-10-02 14:25 | disposition home or self-care (01) | DRG 194 ==
LOC: ER 10:03 → ENRESERV 15:22 → 8WST 16:17
PROVIDERS: ADMIT Internal Medicine; ATTEND Internal Medicine
DX: I13.2 Hypertensive heart and chronic kidney disease with heart failure and with stage 5 chronic kidney disease, or end stage renal disease (principal); N18.6 End stage renal disease; E11.22 Type 2 diabetes mellitus with diabetic chronic kidney disease; I50.9 Heart failure, unspecified; E87.5 Hyperkalemia; E78.5 Hyperlipidemia, unspecified; F17.200 Nicotine dependence, unspecified, uncomplicated; I25.10 Atherosclerotic heart disease of native coronary artery without angina pectoris; F10.10 Alcohol abuse, uncomplicated; Z91.14 Patient's other noncompliance with medication regimen; Z79.899 Other long term (current) drug therapy; Z79.82 Long term (current) use of aspirin; Z99.2 Dependence on renal dialysis
CPT/HCPCS: 36415; 71045; 80053; 82962; 84484; 85025; 85610; 85730; 93005; J0360; J1815; J2270; J2405; J3490

== ENCOUNTER 2017-12-19 08:56 | Emergency (ER) | payer MEDICAID ==
[~2017-12-19] VITALS: Ht 177.8 cm; Wt 95.0 kg
[~2017-12-19 08:56] MED LIST changes: -CLON0.1T PO; -HYDR-4135 PO; -LISI-604 PO; -NIFE30TA94 PO
[2017-12-19] MEDS ORDERED: CLONIDINE 0.2MG TABLET PO ONE (09:30)
[2017-12-19 10:32] LABS: BASOPHILS % 0.5 % (0.0-2.0); EOSINOPHILS % 1.4 % (0.0-5.0); HEMATOCRIT. 30.8 % (42.0-52.0); HEMOGLOBIN. 9.7 g/dL (14.0-18.0); LYMPHOCYTES % 16.2 % (20.0-50.0); MEAN CORPUSCULAR HEMOGLOBIN 22.8 pg (28.0-32.0); MEAN CORPUSCULAR VOLUME 72.5 fL (80.0-94.0); MEAN PLATELET VOLUME 7.1 fl (7.4-10.4); MONOCYTES % 12.1 % (2.0-8.0); NEUTROPHILS % 69.8 % (40.0-76.0); PLATELET 265 x1000/uL (130-400); RED BLOOD CELL COUNT 4.26 mill/uL (4.7-6.1); RED CELL DISTRIBUTION WIDTH 19.7 % (11.6-14.6)
[2017-12-19 10:38] LABS: CHLORIDE 97 mEq/L (98-107)
[2017-12-19 10:40] LABS: INR 1.1
[2017-12-19 11:05] VITALS: BP 187/93
== END 2017-12-19 11:22 | disposition home or self-care (01) ==
LOC: ER 09:04
DX: E11.22 Type 2 diabetes mellitus with diabetic chronic kidney disease (principal); I12.0 Hypertensive chronic kidney disease with stage 5 chronic kidney disease or end stage renal disease; N18.6 End stage renal disease; D63.1 Anemia in chronic kidney disease; Z99.2 Dependence on renal dialysis; Z79.82 Long term (current) use of aspirin
CPT/HCPCS: 36415; 80053; 85025; 85610; 93005; 99285

== ENCOUNTER 2018-01-30 02:54 | Inpatient (IN) | payer MEDICAID ==
[~2018-01-30] VITALS: Ht 182.9 cm; Wt 90.8 kg
[~2018-01-30 02:54] MED LIST changes: +AMLO5TAB4 MT; +ATOR80TA MT; +CARV25TA47 MT; -CARV25TA47 PO; +HYDR100T26 MT; +LOSA100T3 MT; +METF500T6 MT; +MINO2.5T2 MT; +NIFE20CA MT
[2018-01-30] MEDS ORDERED: ONDANSETRON HCL 4MG/2ML INJ IV STA (03:28)
[2018-01-30] MEDS ORDERED: MORPHINE SULFATE 4 MG/ML CPJ (NOT FOR IM USE) IV STA (03:28)
[2018-01-30] MEDS ORDERED: HYDRALAZINE 20MG/ML VIAL IV ONE ×2 (03:30→05:45)
[2018-01-30 04:50] LABS: BASOPHILS % 1.8 % (0.0-2.0); HEMATOCRIT. 38.2 % (42.0-52.0); HEMOGLOBIN. 12.4 g/dL (14.0-18.0); LYMPHOCYTES % 20.9 % (20.0-50.0); MEAN CORPUSCULAR HEMOGLOBIN 24.6 pg (28.0-32.0); MEAN CORPUSCULAR VOLUME 75.8 fL (80.0-94.0); MEAN PLATELET VOLUME 6.6 fl (7.4-10.4); MONOCYTES % 11.2 % (2.0-8.0); NEUTROPHILS % 64.1 % (40.0-76.0); PLATELET 333 x1000/uL (130-400); RED BLOOD CELL COUNT 5.04 mill/uL (4.7-6.1); RED CELL DISTRIBUTION WIDTH 22.7 % (11.6-14.6)
[2018-01-30 04:53] LABS: CHLORIDE 97 mEq/L (98-107)
[2018-01-30 04:59] LABS: ETHANOL BLOOD < 10 mg/dL
[2018-01-30 05:04] LABS: INR 1.1; PROTHROMBIN TIME 11.3 sec (9.1-11.1)
[2018-01-30] MEDS ORDERED: NITROGLYCERIN OINT 1GM/INCH UDPKT TD ONE (05:45)
[2018-01-30 08:20] VITALS: BP 195/118
[2018-01-30 09:00] VITALS: BP 195/118
[2018-01-30] MEDS ORDERED: MAGNESIUM/ALUMINUM HYDROXIDE/SIMETHICONE 30ML UDC PO PRN (11:30)
[2018-01-30] MEDS ORDERED: ACETAMINOPHEN 650MG/20.3ML UDC GT PRN (11:30)
[2018-01-30] MEDS ORDERED: NIFEDIPINE 10MG CAPSULE PO SCH (11:30)
[2018-01-30] MEDS ORDERED: ONDANSETRON HCL 4MG/2ML INJ IV PRN (11:30)
[2018-01-30] MEDS ORDERED: ACETAMINOPHEN 650MG SUPP PR PRN (11:30)
[2018-01-30] MEDS ORDERED: DEXTROSE 50% WATER 50ML SYRINGE IV PRN (11:45)
[2018-01-30] MEDS ORDERED: ONDANSETRON 4MG ODT PO PRN (11:45)
[2018-01-30 12:00] VITALS: BP 203/103
[2018-01-30] MEDS: FOLIC ACID/VITAMIN B COMP W-C TABLET PO SCH (12:24)
[2018-01-30] MEDS: TAMSULOSIN HCL 0.4MG SR CAPSULE PO SCH (12:25)
[2018-01-30] MEDS: GABAPENTIN 100MG CAPSULE PO SCH (12:25)
[2018-01-30] MEDS: CARVEDILOL 25MG TABLET PO SCH ×2 (12:25→19:34)
[2018-01-30] MEDS: LOSARTAN POTASSIUM 100 MG TABLET PO SCH (12:25)
[2018-01-30] MEDS: INSULIN LISPRO 100 UNITS/ML SUBCUT SCH ×3 (13:10→21:00)
[2018-01-30] MEDS: BLOOD SUGAR DIAGNOSTIC STRIP TEST SCH ×3 (13:11→21:00)
[2018-01-30] MEDS: HYDRALAZINE HCL 100MG TABLET PO SCH ×2 (13:29→21:07)
[2018-01-30] MEDS: SEVELAMER CARBONATE 800 MG TABLET PO SCH ×2 (13:30→18:00)
[2018-01-30] MEDS ORDERED: DIATR MEGLU/DIATRIZOATE SOLN 30ML PO SCH (14:00)
[2018-01-30 16:00] VITALS: BP 193/100
[2018-01-30] MEDS ORDERED: HEPARIN SODIUM 1,000 UNIT/1ML VIAL IV NR (16:45)
[2018-01-30 17:01] LABS: CREATINE KINASE 138 IU/L (39-308)
[2018-01-30 17:02] LABS: CREATINE KINASE MB FRACTION 3.7 ng/mL (0.5-3.6)
[2018-01-30] MEDS: IPRATROPIUM/ALBUTEROL 0.5-3(2.5)MG/3ML NEB INH SCH ×2 (17:30→20:51)
[2018-01-30] MEDS ORDERED: ALTEPLASE 2MG/VIAL ITC NR (18:00)
[2018-01-30] MEDS: ACETAMINOPHEN 325MG TABLET PO PRN (18:53)
[2018-01-30] MEDS: ATORVASTATIN CALCIUM 40MG TABLET PO SCH (19:33)
[2018-01-30] MEDS: AMLODIPINE 5MG TABLET PO SCH (19:34)
[2018-01-30 20:00] VITALS: BP 187/105
[2018-01-30] MEDS: CLONIDINE 0.1MG TABLET PO PRN (21:07)
[2018-01-30 22:31] LABS: TOTAL IRON BINDING CAPACITY 272 ug/dL (250-450)
[2018-01-31] MEDS: LORAZEPAM 0.5MG TABLET PO PRN (00:28)
[2018-01-31 00:38] VITALS: BP 168/105
[2018-01-31 04:00] VITALS: BP 187/102
[2018-01-31] MEDS: CLONIDINE 0.1MG TABLET PO PRN (04:21)
[2018-01-31] MEDS: HYDRALAZINE HCL 100MG TABLET PO SCH ×3 (04:21→21:14)
[2018-01-31 05:57] LABS: CLARITY URINE CLEAR (CLEAR); COLOR URINE YELLOW (YELLOW); KETONES URINE NEGATIVE (NEGATIVE); LEUKOCYTE ESTERASE URINE NEGATIVE (NEGATIVE); NITRITE URINE NEGATIVE (NEGATIVE); OCCULT BLOOD URINE NEGATIVE (NEGATIVE); PH URINE 8.5 (4.5-8.0); PROTEIN URINE 3+ (NEGATIVE); UROBILINOGEN URINE 0.2 E.U./dL (0.2-1.0)
[2018-01-31 06:25] LABS: *AMPHETAMINES SCREEN URINE NEGATIVE (NEGATIVE); *BARBITURATES SCREEN URINE NEGATIVE (NEGATIVE)
[2018-01-31 06:26] LABS: *BENZODIAZEPINES SCREEN URINE NEGATIVE (NEGATIVE); *COCAINE SCREEN URINE NEGATIVE (NEGATIVE); METHADONE URINE SCREEN NEGATIVE (NEGATIVE); OPIATES URINE SCREEN NEGATIVE (NEGATIVE); PHENCYCLIDINE URINE SCREEN NEGATIVE (NEGATIVE)
[2018-01-31 06:27] LABS: CANNABINOID URINE SCREEN NEGATIVE (NEGATIVE)
[2018-01-31] MEDS ORDERED: DIATR MEGLU/DIATRIZOATE SOLN 30ML PO NR (07:30)
[2018-01-31] MEDS: BLOOD SUGAR DIAGNOSTIC STRIP TEST SCH ×4 (07:40→20:55)
[2018-01-31 08:00] VITALS: BP 142/76
[2018-01-31] MEDS: INSULIN LISPRO 100 UNITS/ML SUBCUT SCH ×4 (08:10→21:19)
[2018-01-31] MEDS: ACETAMINOPHEN 325MG TABLET PO PRN ×2 (10:18→21:15)
[2018-01-31] MEDS: OMEPRAZOLE 20MG CAPSULE EXTENDED RELEASE PO SCH (10:19)
[2018-01-31] MEDS: FOLIC ACID/VITAMIN B COMP W-C TABLET PO SCH (10:19)
[2018-01-31] MEDS: MINOXIDIL 2.5MG TABLET PO SCH ×2 (10:19→21:15)
[2018-01-31] MEDS: CARVEDILOL 25MG TABLET PO SCH ×2 (10:19→21:14)
[2018-01-31] MEDS: TAMSULOSIN HCL 0.4MG SR CAPSULE PO SCH (10:19)
[2018-01-31] MEDS: GABAPENTIN 100MG CAPSULE PO SCH (10:20)
[2018-01-31] MEDS: SEVELAMER CARBONATE 800 MG TABLET PO SCH ×3 (10:20→17:45)
[2018-01-31] MEDS: LOSARTAN POTASSIUM 100 MG TABLET PO SCH (10:20)
[2018-01-31] MEDS: AMLODIPINE 5MG TABLET PO SCH ×2 (10:20→21:14)
[2018-01-31 12:00] VITALS: BP 138/95
[2018-01-31] MEDS: IPRATROPIUM/ALBUTEROL 0.5-3(2.5)MG/3ML NEB INH SCH ×3 (14:25→23:30)
[2018-01-31 16:00] VITALS: BP 129/81
[2018-01-31 20:00] VITALS: BP 166/86
[2018-01-31] MEDS: ATORVASTATIN CALCIUM 40MG TABLET PO SCH (21:15)
[2018-02-01] VITALS: BP 167/81
[2018-02-01] MEDS: LORAZEPAM 0.5MG TABLET PO PRN ×2 (00:51→20:18)
[2018-02-01 04:00] VITALS: BP 167/81
[2018-02-01] MEDS: HYDRALAZINE HCL 100MG TABLET PO SCH ×3 (06:14→22:28)
[2018-02-01] MEDS: CLONIDINE 0.1MG TABLET PO PRN ×2 (06:14→22:35)
[2018-02-01] MEDS: BLOOD SUGAR DIAGNOSTIC STRIP TEST SCH ×4 (06:16→20:23)
[2018-02-01] MEDS: INSULIN LISPRO 100 UNITS/ML SUBCUT SCH ×4 (06:16→20:23)
[2018-02-01 08:00] VITALS: BP 135/66
[2018-02-01] MEDS: FOLIC ACID/VITAMIN B COMP W-C TABLET PO SCH (08:14)
[2018-02-01] MEDS: SEVELAMER CARBONATE 800 MG TABLET PO SCH ×3 (08:14→18:14)
[2018-02-01] MEDS: ACETAMINOPHEN 325MG TABLET PO PRN ×2 (08:14→20:17)
[2018-02-01] MEDS: OMEPRAZOLE 20MG CAPSULE EXTENDED RELEASE PO SCH (08:14)
[2018-02-01] MEDS: GABAPENTIN 100MG CAPSULE PO SCH (08:14)
[2018-02-01] MEDS: TAMSULOSIN HCL 0.4MG SR CAPSULE PO SCH (08:21)
[2018-02-01] MEDS: IPRATROPIUM/ALBUTEROL 0.5-3(2.5)MG/3ML NEB INH SCH ×3 (09:45→20:48)
[2018-02-01 11:16] LABS: BASOPHILS % 0.3 % (0.0-2.0); EOSINOPHILS % 3.3 % (0.0-5.0); HEMOGLOBIN. 10.6 g/dL (14.0-18.0); LYMPHOCYTES % 28.9 % (20.0-50.0); MEAN CORPUSCULAR HEMOGLOBIN 24.5 pg (28.0-32.0); MEAN CORPUSCULAR VOLUME 76.6 fL (80.0-94.0); MEAN PLATELET VOLUME 7.1 fl (7.4-10.4); MONOCYTES % 13.3 % (2.0-8.0); NEUTROPHILS % 54.2 % (40.0-76.0); PLATELET 243 x1000/uL (130-400); RED BLOOD CELL COUNT 4.31 mill/uL (4.7-6.1); RED CELL DISTRIBUTION WIDTH 23.9 % (11.6-14.6)
[2018-02-01 12:00] VITALS: BP 166/89
[2018-02-01 12:36] LABS: CHLORIDE 100 mEq/L (98-107)
[2018-02-01 12:50] LABS: HDL CHOLESTEROL 21 mg/dL (40-59)
[2018-02-01 12:57] LABS: LDL CHOLESTEROL 47 mg/dL (5-100)
[2018-02-01 13:04] LABS: CREATINE KINASE 103 IU/L (39-308); CREATINE KINASE MB FRACTION 3.1 ng/mL (0.5-3.6)
[2018-02-01 13:05] LABS: T4 FREE 0.84 ng/dL (0.76-1.46)
[2018-02-01 13:09] LABS: FERRITIN 391 ng/mL (22-322)
[2018-02-01 13:16] LABS: FOLIC ACID (FOLATE) SERUM >20 ng/mL ng/mL (>5.38)
[2018-02-01 13:28] LABS: VITAMIN B12 SERUM 447 pg/mL (211-911)
[2018-02-01] MEDS: CARVEDILOL 25MG TABLET PO SCH ×2 (13:39→20:19)
[2018-02-01] MEDS: MINOXIDIL 2.5MG TABLET PO SCH (13:39)
[2018-02-01] MEDS: AMLODIPINE 5MG TABLET PO SCH ×2 (13:39→20:18)
[2018-02-01] MEDS: LOSARTAN POTASSIUM 100 MG TABLET PO SCH (13:39)
[2018-02-01 15:23] LABS: PLATELET ESTIMATE NORMAL
[2018-02-01 16:00] VITALS: BP 146/82
[2018-02-01] MEDS: CLONIDINE 0.1MG TABLET PO SCH (19:51)
[2018-02-01 20:00] VITALS: BP 150/86
[2018-02-01] MEDS: ATORVASTATIN CALCIUM 40MG TABLET PO SCH (20:18)
[2018-02-02] VITALS: BP 184/85
[2018-02-02] MEDS: IPRATROPIUM/ALBUTEROL 0.5-3(2.5)MG/3ML NEB INH SCH ×2 (00:59→07:20)
[2018-02-02 04:00] VITALS: BP 162/81
[2018-02-02] MEDS: HYDRALAZINE HCL 100MG TABLET PO SCH (05:11)
[2018-02-02] MEDS: CLONIDINE 0.1MG TABLET PO PRN (05:12)
[2018-02-02] MEDS: BLOOD SUGAR DIAGNOSTIC STRIP TEST SCH (06:45)
[2018-02-02] MEDS: INSULIN LISPRO 100 UNITS/ML SUBCUT SCH (06:46)
[2018-02-02] MEDS: CLONIDINE 0.1MG TABLET PO SCH (06:58)
[2018-02-02] MEDS: OMEPRAZOLE 20MG CAPSULE EXTENDED RELEASE PO SCH (07:01)
[2018-02-02 08:00] VITALS: BP 138/66
[2018-02-02] MEDS: SEVELAMER CARBONATE 800 MG TABLET PO SCH (08:16)
[2018-02-02] MEDS: CARVEDILOL 25MG TABLET PO SCH (08:16)
[2018-02-02] MEDS: LOSARTAN POTASSIUM 100 MG TABLET PO SCH (08:16)
[2018-02-02] MEDS: TAMSULOSIN HCL 0.4MG SR CAPSULE PO SCH (08:16)
[2018-02-02] MEDS: AMLODIPINE 5MG TABLET PO SCH (08:16)
[2018-02-02] MEDS: GABAPENTIN 100MG CAPSULE PO SCH (08:16)
[2018-02-02] MEDS: FOLIC ACID/VITAMIN B COMP W-C TABLET PO SCH (08:16)
== END 2018-02-02 12:45 | disposition left against medical advice (07) | DRG 194 ==
LOC: ER 02:54 → EDBEDREQ 06:25 → EDBEDREQTM 06:25 → ENRESERV 07:08 → 7WST 08:27
PROVIDERS: ADMIT Internal Medicine; ATTEND Internal Medicine
PROC: 5A1D70Z Performance of Urinary Filtration, Intermittent, Less than 6 Hours Per Day (ICD-10-PCS; principal; 2018-01-30)
PROC: 5A1D70Z Performance of Urinary Filtration, Intermittent, Less than 6 Hours Per Day (ICD-10-PCS; 2018-02-01)
DX: I13.2 Hypertensive heart and chronic kidney disease with heart failure and with stage 5 chronic kidney disease, or end stage renal disease (principal); E11.22 Type 2 diabetes mellitus with diabetic chronic kidney disease; E11.40 Type 2 diabetes mellitus with diabetic neuropathy, unspecified; K70.0 Alcoholic fatty liver; E83.39 Other disorders of phosphorus metabolism; E87.1 Hypo-osmolality and hyponatremia; D50.9 Iron deficiency anemia, unspecified; F10.10 Alcohol abuse, uncomplicated; F17.210 Nicotine dependence, cigarettes, uncomplicated; N18.6 End stage renal disease; I50.33 Acute on chronic diastolic (congestive) heart failure; D63.8 Anemia in other chronic diseases classified elsewhere; E78.5 Hyperlipidemia, unspecified; D63.1 Anemia in chronic kidney disease; F42.4 Excoriation (skin-picking) disorder; N26.1 Atrophy of kidney (terminal); L98.499 Non-pressure chronic ulcer of skin of other sites with unspecified severity; E78.00 Pure hypercholesterolemia, unspecified; Z53.21 Procedure and treatment not carried out due to patient leaving prior to being seen by health care provider; Z99.2 Dependence on renal dialysis; Z79.84 Long term (current) use of oral hypoglycemic drugs; Z79.82 Long term (current) use of aspirin; Z79.899 Other long term (current) drug therapy; Z91.19 Patient's noncompliance with other medical treatment and regimen; Z71.6 Tobacco abuse counseling
CPT/HCPCS: 36415; 71045; 74176; 76700; 80048; 80053; 80061; 80305; 81003; 82550; 82553; 82607; 82728; 82746; 82962; 83036; 83540; 83550; 83690; 83735; 83880; 84439; 84443; 84481; 84484; 85025; 85610; 93005; 93306; 94640; 96374; 96375; 97162; 99285; G0482; J0360; J1815; J2270; J2405; J2997; J7030; J7620

== ENCOUNTER 2018-02-27 10:49 | Inpatient (IN) | payer MEDICAID ==
[~2018-02-27] VITALS: Ht 177.8 cm; Wt 89.8 kg
[~2018-02-27 10:49] MED LIST changes: -AMLO5TAB4 MT; +AMLO5TAB4 PO; -ATOR80TA MT; -CARV25TA47 MT; +CARV25TA47 PO; -CLON0.2T MT; +CLON0.2T PO; -HYDR100T26 MT; +HYDR100T26 PO; -LOSA100T3 MT; -METF500T6 MT; +METF500T6 PO; -MINO2.5T2 MT; +MINO2.5T2 PO; -NIFE20CA MT; +NIFE20CA PO
[2018-02-27] MEDS ORDERED: HYDROCODONE/ACETAMINOPHEN 5/325MG TABLET PO ONE (11:15)
[2018-02-27 13:06] LABS: BASOPHILS % 0.6 % (0.0-2.0); EOSINOPHILS % 0.3 % (0.0-5.0); HEMATOCRIT. 33.5 % (42.0-52.0); HEMOGLOBIN. 10.6 g/dL (14.0-18.0); LYMPHOCYTES % 11.1 % (20.0-50.0); MEAN CORPUSCULAR VOLUME 75.8 fL (80.0-94.0); MEAN PLATELET VOLUME 7.1 fl (7.4-10.4); MONOCYTES % 12.7 % (2.0-8.0); NEUTROPHILS % 75.3 % (40.0-76.0); PLATELET 297 x1000/uL (130-400); RED BLOOD CELL COUNT 4.42 mill/uL (4.7-6.1)
[2018-02-27 13:13] LABS: CHLORIDE 94 mEq/L (98-107)
[2018-02-27 13:15] LABS: INR 1.2; PARTIAL THROMBOPLASTIN TIME 37.6 sec (23.4-31.0); PROTHROMBIN TIME 11.7 sec (9.1-11.1)
[2018-02-27 13:20] LABS: PHOSPHORUS 5.4 mg/dL (2.5-4.9)
[2018-02-27] MEDS ORDERED: ENOXAPARIN 100MG/ML SYR SUBCUT ONE (13:45)
[2018-02-27] MEDS ORDERED: MAGNESIUM/ALUMINUM HYDROXIDE/SIMETHICONE 30ML UDC PO PRN (16:45)
[2018-02-27] MEDS ORDERED: ACETAMINOPHEN 650MG SUPP PR PRN (16:45)
[2018-02-27] MEDS ORDERED: ONDANSETRON HCL 4MG/2ML INJ IV PRN (16:45)
[2018-02-27] MEDS ORDERED: ACETAMINOPHEN 650MG/20.3ML UDC GT PRN (16:45)
[2018-02-27] MEDS ORDERED: HYDROCODONE/ACETAMINOPHEN 5/325MG TABLET PO PRN (16:45)
[2018-02-27] MEDS ORDERED: HEPARIN BOLUS PRN aPTT 37-44 IV (19:00)
[2018-02-27] MEDS ORDERED: HEPARIN BOLUS PRN aPTT <36 IV (19:00)
[2018-02-27 19:30] VITALS: BP 165/82
[2018-02-27 20:00] VITALS: BP 165/82
[2018-02-27 20:55] LABS: CREATINE KINASE 49 IU/L (39-308)
[2018-02-27 20:56] LABS: CREATINE KINASE MB FRACTION < 1.0 ng/mL (0.5-3.6)
[2018-02-27] MEDS: HEPARIN 25,000 UNITS PREMIX 500 ML IV SCH (21:03)
[2018-02-27] MEDS: HYDROCODONE/ACETAMINOPHEN 10/325MG TABLET PO PRN (23:47)
[2018-02-28] VITALS (24 sets, daily range): BP systolic 123–180; BP diastolic 71–92
[2018-02-28] MEDS: IPRATROPIUM/ALBUTEROL 0.5-3(2.5)MG/3ML NEB HHN SCH ×2 (01:15→20:30)
[2018-02-28 03:22] LABS: BASOPHILS % 0.6 % (0.0-2.0); EOSINOPHILS % 0.2 % (0.0-5.0); HEMOGLOBIN. 10.9 g/dL (14.0-18.0); LYMPHOCYTES % 10.4 % (20.0-50.0); MEAN CORPUSCULAR HEMOGLOBIN 24.1 pg (28.0-32.0); MEAN CORPUSCULAR VOLUME 75.7 fL (80.0-94.0); MEAN PLATELET VOLUME 7.2 fl (7.4-10.4); MONOCYTES % 11.7 % (2.0-8.0); NEUTROPHILS % 77.1 % (40.0-76.0); PLATELET 322 x1000/uL (130-400); RED CELL DISTRIBUTION WIDTH 19.6 % (11.6-14.6)
[2018-02-28 03:27] LABS: CHLORIDE 95 mEq/L (98-107)
[2018-02-28 03:35] LABS: LDL CHOLESTEROL 54 mg/dL (5-100)
[2018-02-28 03:36] LABS: CREATINE KINASE 46 IU/L (39-308)
[2018-02-28 03:37] LABS: CREATINE KINASE MB FRACTION < 1.0 ng/mL (0.5-3.6); T4 FREE 1.21 ng/dL (0.76-1.46)
[2018-02-28 03:38] LABS: HDL CHOLESTEROL 18 mg/dL (40-59)
[2018-02-28] MEDS: HYDROCODONE/ACETAMINOPHEN 10/325MG TABLET PO PRN ×3 (06:42→21:03)
[2018-02-28] MEDS ORDERED: CEFAZOLIN 1000MG PREMIX 50 ML IV ONE ×2 (10:28→10:30)
[2018-02-28] MEDS ORDERED: MIDAZOLAM HCL 2 MG/2 ML VIAL ONE (10:31)
[2018-02-28] MEDS ORDERED: FENTANYL CITRATE/PF 50MCG/ML 2ML VIAL ONE ×2 (10:31→11:20)
[2018-02-28] MEDS ORDERED: MIDAZOLAM HCL 5 MG/5 ML VIAL IV ONE (11:15)
[2018-02-28] MEDS ORDERED: LIDOCAINE HCL 1% 20ML VIAL (Pyxis) INJ ONE (11:28)
[2018-02-28] MEDS ORDERED: FENTANYL CITRATE/PF 50MCG/ML 2ML VIAL IV NR (11:30)
[2018-02-28] MEDS: HEPARIN 25,000 UNITS PREMIX 500 ML IV SCH (15:56)
[2018-02-28] MEDS: CLONIDINE 0.1MG TABLET PO PRN (15:57)
[2018-02-28] MEDS: AMLODIPINE 2.5MG TABLET PO SCH (17:30)
[2018-02-28] MEDS: ISOSORBIDE MONONITRATE 30MG TABLET SR 24HR PO SCH (17:30)
[2018-02-28] MEDS: LOSARTAN POTASSIUM 100 MG TABLET PO SCH (17:30)
[2018-02-28] MEDS ORDERED: ISOSORBIDE DINITRATE 30MG TABLET PO SCH (17:30)
[2018-02-28] MEDS ORDERED: DEXTROSE 50% WATER 50ML SYRINGE IV PRN (17:30)
[2018-02-28] MEDS: INSULIN LISPRO 100 UNITS/ML SUBCUT SCH ×2 (17:40→21:00)
[2018-02-28 18:18] LABS: ETHANOL BLOOD < 10 mg/dL
[2018-02-28 18:19] LABS: AMMONIA 28 uMol/L (<32)
[2018-02-28 18:24] LABS: T4 FREE 1.38 ng/dL (0.76-1.46)
[2018-02-28] MEDS: NICOTINE 7MG PATCH TD SCH (18:30)
[2018-02-28] MEDS: SEVELAMER CARBONATE 800 MG TABLET PO SCH (18:31)
[2018-02-28] MEDS: GABAPENTIN 100MG CAPSULE PO SCH (18:31)
[2018-02-28] MEDS: TAMSULOSIN HCL 0.4MG SR CAPSULE PO SCH (18:31)
[2018-02-28] MEDS: FOLIC ACID/VITAMIN B COMP W-C TABLET PO SCH (18:31)
[2018-02-28 18:47] LABS: VITAMIN B12 SERUM 528 pg/mL (211-911)
[2018-02-28 18:52] LABS: FOLIC ACID (FOLATE) SERUM > 20.00 ng/mL (>5.38)
[2018-02-28] MEDS: VANCOMYCIN 2,000 MG in DEXT 5% WATER 500 ML IV SCH ×3 (21:02→23:52)
[2018-02-28] MEDS: CARVEDILOL 25MG TABLET PO SCH (21:03)
[2018-02-28] MEDS: BLOOD SUGAR DIAGNOSTIC STRIP TEST SCH (21:29)
[2018-03-01] VITALS: BP 116/65
[2018-03-01] MEDS: IPRATROPIUM/ALBUTEROL 0.5-3(2.5)MG/3ML NEB HHN SCH
[2018-03-01 04:00] VITALS: BP 113/65
[2018-03-01] MEDS: SEVELAMER CARBONATE 800 MG TABLET PO SCH ×3 (06:18→16:44)
[2018-03-01] MEDS: BLOOD SUGAR DIAGNOSTIC STRIP TEST SCH ×4 (06:26→21:26)
[2018-03-01] MEDS: INSULIN LISPRO 100 UNITS/ML SUBCUT SCH ×4 (06:26→21:00)
[2018-03-01 08:00] VITALS: BP 140/68
[2018-03-01] MEDS: NICOTINE 7MG PATCH TD SCH (09:00)
[2018-03-01] MEDS: GABAPENTIN 100MG CAPSULE PO SCH (09:12)
[2018-03-01] MEDS: ISOSORBIDE MONONITRATE 30MG TABLET SR 24HR PO SCH (09:12)
[2018-03-01] MEDS: LOSARTAN POTASSIUM 100 MG TABLET PO SCH (09:12)
[2018-03-01] MEDS: FOLIC ACID/VITAMIN B COMP W-C TABLET PO SCH (09:12)
[2018-03-01] MEDS: TAMSULOSIN HCL 0.4MG SR CAPSULE PO SCH (09:12)
[2018-03-01] MEDS: CARVEDILOL 25MG TABLET PO SCH ×2 (09:12→21:26)
[2018-03-01] MEDS: AMLODIPINE 2.5MG TABLET PO SCH (09:13)
[2018-03-01 10:46] LABS: MEAN CORPUSCULAR HEMOGLOBIN 23.7 pg (28.0-32.0); MEAN PLATELET VOLUME 7.7 fl (7.4-10.4); PLATELET 323 x1000/uL (130-400); RED BLOOD CELL COUNT 4.21 mill/uL (4.7-6.1); RED CELL DISTRIBUTION WIDTH 20.2 % (11.6-14.6)
[2018-03-01 11:20] LABS: PHOSPHORUS 6.3 mg/dL (2.5-4.9)
[2018-03-01 12:00] VITALS: BP 131/67
[2018-03-01 16:47] LABS: PLATELET ESTIMATE NORMAL
[2018-03-01 20:00] VITALS: BP 122/65
[2018-03-01] MEDS: ACETAMINOPHEN 325MG TABLET PO PRN (22:10)
[2018-03-02] VITALS: BP 130/70
[2018-03-02 04:00] VITALS: BP 135/68
[2018-03-02] MEDS: BLOOD SUGAR DIAGNOSTIC STRIP TEST SCH ×4 (06:22→21:22)
[2018-03-02] MEDS: INSULIN LISPRO 100 UNITS/ML SUBCUT SCH ×4 (06:22→21:00)
[2018-03-02] MEDS: SEVELAMER CARBONATE 800 MG TABLET PO SCH ×3 (07:40→17:40)
[2018-03-02 08:00] VITALS: BP 164/75
[2018-03-02] MEDS: NICOTINE 7MG PATCH TD SCH (08:48)
[2018-03-02] MEDS: LOSARTAN POTASSIUM 100 MG TABLET PO SCH (08:48)
[2018-03-02] MEDS: ISOSORBIDE MONONITRATE 30MG TABLET SR 24HR PO SCH (08:48)
[2018-03-02] MEDS: AMLODIPINE 2.5MG TABLET PO SCH (08:48)
[2018-03-02] MEDS: CARVEDILOL 25MG TABLET PO SCH ×2 (08:48→21:19)
[2018-03-02] MEDS: HYDROCODONE/ACETAMINOPHEN 10/325MG TABLET PO PRN ×2 (08:49→15:01)
[2018-03-02] MEDS: FOLIC ACID/VITAMIN B COMP W-C TABLET PO SCH (08:49)
[2018-03-02] MEDS: TAMSULOSIN HCL 0.4MG SR CAPSULE PO SCH (08:49)
[2018-03-02] MEDS: GABAPENTIN 100MG CAPSULE PO SCH (08:49)
[2018-03-02] MEDS ORDERED: BISACODYL 10MG SUPP PR PRN (09:15)
[2018-03-02] MEDS ORDERED: NA PHOS,M-B/NA PHOS,DI-BA ENEMA 118ML PR PRN (09:15)
[2018-03-02] MEDS: ENOXAPARIN 100MG/ML SYR SUBCUT SCH ×2 (09:30→13:24)
[2018-03-02 12:00] VITALS: BP 163/76
[2018-03-02] MEDS: DOCUSATE SODIUM 250MG CAPSULE PO SCH (13:23)
[2018-03-02 13:25] LABS: CHLORIDE 91 mEq/L (98-107)
[2018-03-02 13:31] LABS: PHOSPHORUS 6.2 mg/dL (2.5-4.9)
[2018-03-02] MEDS ORDERED: VANCOMYCIN 750 MG PREMIX 150 ML IV SCH (14:00)
[2018-03-02 16:00] VITALS: BP 141/87
[2018-03-02 20:00] VITALS: BP 147/81
[2018-03-02] MEDS: IPRATROPIUM/ALBUTEROL 0.5-3(2.5)MG/3ML NEB HHN SCH (20:43)
[2018-03-03] VITALS: BP 167/91
[2018-03-03] MEDS: CLONIDINE 0.1MG TABLET PO PRN (00:36)
[2018-03-03] MEDS: ACETAMINOPHEN 325MG TABLET PO PRN ×3 (00:40→14:24)
[2018-03-03] MEDS: HYDROCODONE/ACETAMINOPHEN 10/325MG TABLET PO PRN ×2 (02:13→22:00)
[2018-03-03 04:00] VITALS: BP 152/81
[2018-03-03] MEDS: BLOOD SUGAR DIAGNOSTIC STRIP TEST SCH ×4 (05:45→20:40)
[2018-03-03] MEDS: INSULIN LISPRO 100 UNITS/ML SUBCUT SCH ×4 (05:46→20:40)
[2018-03-03 07:02] LABS: BASOPHILS % 0.2 % (0.0-2.0); EOSINOPHILS % 1.9 % (0.0-5.0); HEMATOCRIT. 29.7 % (42.0-52.0); HEMOGLOBIN. 9.6 g/dL (14.0-18.0); LYMPHOCYTES % 14.3 % (20.0-50.0); MEAN CORPUSCULAR HEMOGLOBIN 24.5 pg (28.0-32.0); MEAN CORPUSCULAR VOLUME 75.8 fL (80.0-94.0); MEAN PLATELET VOLUME 7.6 fl (7.4-10.4); MONOCYTES % 14.2 % (2.0-8.0); NEUTROPHILS % 69.4 % (40.0-76.0); PLATELET 307 x1000/uL (130-400); RED BLOOD CELL COUNT 3.91 mill/uL (4.7-6.1); RED CELL DISTRIBUTION WIDTH 19.7 % (11.6-14.6)
[2018-03-03 08:10] VITALS: BP 156/82
[2018-03-03] MEDS: DOCUSATE SODIUM 250MG CAPSULE PO SCH (08:56)
[2018-03-03] MEDS: ISOSORBIDE MONONITRATE 30MG TABLET SR 24HR PO SCH (08:56)
[2018-03-03] MEDS: FOLIC ACID/VITAMIN B COMP W-C TABLET PO SCH (08:56)
[2018-03-03] MEDS: AMLODIPINE 2.5MG TABLET PO SCH (08:56)
[2018-03-03] MEDS: LOSARTAN POTASSIUM 100 MG TABLET PO SCH (08:57)
[2018-03-03] MEDS: SEVELAMER CARBONATE 800 MG TABLET PO SCH ×3 (08:57→17:27)
[2018-03-03] MEDS: CARVEDILOL 25MG TABLET PO SCH ×2 (08:57→20:32)
[2018-03-03] MEDS: ENOXAPARIN 100MG/ML SYR SUBCUT SCH ×2 (08:57→09:00)
[2018-03-03] MEDS: GABAPENTIN 100MG CAPSULE PO SCH (08:57)
[2018-03-03] MEDS: TAMSULOSIN HCL 0.4MG SR CAPSULE PO SCH (08:57)
[2018-03-03] MEDS: IPRATROPIUM/ALBUTEROL 0.5-3(2.5)MG/3ML NEB HHN SCH ×2 (08:59→15:26)
[2018-03-03] MEDS: NICOTINE 7MG PATCH TD SCH (09:00)
[2018-03-03 12:00] VITALS: BP 148/78
[2018-03-03] MEDS: APIXABAN 5 MG TABLET PO SCH ×2 (14:24→20:32)
[2018-03-03 16:00] VITALS: BP 149/79
[2018-03-03 20:00] VITALS: BP 143/77
[2018-03-04] VITALS: BP 136/74
[2018-03-04] MEDS: ACETAMINOPHEN 325MG TABLET PO PRN ×3 (00:42→22:43)
[2018-03-04 04:00] VITALS: BP 155/85
[2018-03-04] MEDS: BLOOD SUGAR DIAGNOSTIC STRIP TEST SCH ×4 (05:53→21:08)
[2018-03-04] MEDS: INSULIN LISPRO 100 UNITS/ML SUBCUT SCH ×4 (05:54→21:00)
[2018-03-04] MEDS: HYDROCODONE/ACETAMINOPHEN 10/325MG TABLET PO PRN ×2 (06:43→16:51)
[2018-03-04 07:36] LABS: BASOPHILS % 0.4 % (0.0-2.0); EOSINOPHILS % 1.9 % (0.0-5.0); HEMATOCRIT. 30.2 % (42.0-52.0); HEMOGLOBIN. 9.9 g/dL (14.0-18.0); LYMPHOCYTES % 17.8 % (20.0-50.0); MEAN CORPUSCULAR HEMOGLOBIN 24.7 pg (28.0-32.0); MEAN CORPUSCULAR VOLUME 75.2 fL (80.0-94.0); MEAN PLATELET VOLUME 7.4 fl (7.4-10.4); MONOCYTES % 12.4 % (2.0-8.0); NEUTROPHILS % 67.5 % (40.0-76.0); PLATELET 330 x1000/uL (130-400); RED BLOOD CELL COUNT 4.01 mill/uL (4.7-6.1); RED CELL DISTRIBUTION WIDTH 19.6 % (11.6-14.6)
[2018-03-04 08:00] VITALS: BP 160/89
[2018-03-04] MEDS: ENOXAPARIN 100MG/ML SYR SUBCUT SCH (09:00)
[2018-03-04] MEDS: NICOTINE 7MG PATCH TD SCH (09:00)
[2018-03-04] MEDS: AMLODIPINE 2.5MG TABLET PO SCH (09:00)
[2018-03-04] MEDS: CARVEDILOL 25MG TABLET PO SCH ×2 (09:00→22:43)
[2018-03-04] MEDS: FOLIC ACID/VITAMIN B COMP W-C TABLET PO SCH (09:10)
[2018-03-04] MEDS: SEVELAMER CARBONATE 800 MG TABLET PO SCH ×3 (09:11→16:40)
[2018-03-04] MEDS: TAMSULOSIN HCL 0.4MG SR CAPSULE PO SCH (09:11)
[2018-03-04] MEDS: GABAPENTIN 100MG CAPSULE PO SCH (09:11)
[2018-03-04] MEDS: DOCUSATE SODIUM 250MG CAPSULE PO SCH (09:11)
[2018-03-04] MEDS: LOSARTAN POTASSIUM 100 MG TABLET PO SCH (09:12)
[2018-03-04] MEDS: APIXABAN 5 MG TABLET PO SCH ×2 (09:12→16:39)
[2018-03-04] MEDS: ISOSORBIDE MONONITRATE 30MG TABLET SR 24HR PO SCH (09:12)
[2018-03-04] MEDS: IPRATROPIUM/ALBUTEROL 0.5-3(2.5)MG/3ML NEB HHN SCH ×3 (09:27→21:06)
[2018-03-04] MEDS ORDERED: ALTEPLASE 2MG/VIAL ITC SCH (13:30)
[2018-03-04] MEDS ORDERED: VANCOMYCIN 750 MG PREMIX 150 ML IV SCH (16:00)
[2018-03-04] MEDS: CLONIDINE 0.1MG TABLET PO PRN ×2 (16:40→22:42)
[2018-03-04] MEDS ORDERED: SODIUM POLYSTYRENE SULFONATE 15 G/60 ML BOT PO NR (17:00)
[2018-03-04 20:00] VITALS: BP 179/94
[2018-03-04] MEDS ORDERED: EPOETIN ALFA 4000UNITS/ML VIAL SUBCUT SCH (21:00)
[2018-03-05] VITALS (9 sets, daily range): BP systolic 149–190; BP diastolic 77–98
[2018-03-05] MEDS: ACETAMINOPHEN 325MG TABLET PO PRN (05:52)
[2018-03-05] MEDS: CLONIDINE 0.1MG TABLET PO PRN ×2 (05:58→12:50)
[2018-03-05] MEDS: BLOOD SUGAR DIAGNOSTIC STRIP TEST SCH ×4 (06:00→20:07)
[2018-03-05] MEDS: INSULIN LISPRO 100 UNITS/ML SUBCUT SCH ×4 (06:00→20:07)
[2018-03-05] MEDS: SEVELAMER CARBONATE 800 MG TABLET PO SCH ×3 (07:49→16:56)
[2018-03-05] MEDS: CARVEDILOL 25MG TABLET PO SCH ×2 (07:50→21:05)
[2018-03-05] MEDS: AMLODIPINE 2.5MG TABLET PO SCH ×2 (07:50→16:56)
[2018-03-05] MEDS: LOSARTAN POTASSIUM 100 MG TABLET PO SCH (07:51)
[2018-03-05] MEDS: ISOSORBIDE MONONITRATE 30MG TABLET SR 24HR PO SCH (07:51)
[2018-03-05] MEDS: GABAPENTIN 100MG CAPSULE PO SCH (08:02)
[2018-03-05] MEDS: DOCUSATE SODIUM 250MG CAPSULE PO SCH (08:02)
[2018-03-05] MEDS: FOLIC ACID/VITAMIN B COMP W-C TABLET PO SCH (08:02)
[2018-03-05] MEDS: APIXABAN 5 MG TABLET PO SCH ×2 (08:02→16:55)
[2018-03-05] MEDS: TAMSULOSIN HCL 0.4MG SR CAPSULE PO SCH (08:02)
[2018-03-05] MEDS: NICOTINE 7MG PATCH TD SCH (08:03)
[2018-03-05] MEDS: IPRATROPIUM/ALBUTEROL 0.5-3(2.5)MG/3ML NEB HHN SCH ×3 (09:52→21:03)
[2018-03-05 10:14] LABS: BASOPHILS % 0.5 % (0.0-2.0); EOSINOPHILS % 2.3 % (0.0-5.0); HEMATOCRIT. 31.3 % (42.0-52.0); LYMPHOCYTES % 18.7 % (20.0-50.0); MEAN CORPUSCULAR HEMOGLOBIN 24.2 pg (28.0-32.0); MEAN CORPUSCULAR VOLUME 75.5 fL (80.0-94.0); MEAN PLATELET VOLUME 7.5 fl (7.4-10.4); MONOCYTES % 10.6 % (2.0-8.0); NEUTROPHILS % 67.9 % (40.0-76.0); PLATELET 372 x1000/uL (130-400); RED BLOOD CELL COUNT 4.15 mill/uL (4.7-6.1); RED CELL DISTRIBUTION WIDTH 19.7 % (11.6-14.6)
[2018-03-05] MEDS: HYDRALAZINE HCL 100MG TABLET PO SCH ×2 (14:19→21:05)
[2018-03-05] MEDS: CEFAZOLIN 2,000 MG in DEXT 5% WATER 100 ML IV SCH (17:19)
[2018-03-06] MEDS: IPRATROPIUM/ALBUTEROL 0.5-3(2.5)MG/3ML NEB HHN SCH ×4 (01:36→20:24)
[2018-03-06 04:30] VITALS: BP 148/82
[2018-03-06] MEDS: ACETAMINOPHEN 325MG TABLET PO PRN (04:38)
[2018-03-06] MEDS: HYDRALAZINE HCL 100MG TABLET PO SCH ×3 (04:38→21:50)
[2018-03-06] MEDS: BLOOD SUGAR DIAGNOSTIC STRIP TEST SCH ×4 (06:12→22:00)
[2018-03-06] MEDS: INSULIN LISPRO 100 UNITS/ML SUBCUT SCH ×4 (06:13→22:00)
[2018-03-06] MEDS: SEVELAMER CARBONATE 800 MG TABLET PO SCH ×3 (07:40→17:40)
[2018-03-06 08:00] VITALS: BP 158/83
[2018-03-06] MEDS: CARVEDILOL 25MG TABLET PO SCH ×2 (09:00→21:51)
[2018-03-06] MEDS: APIXABAN 5 MG TABLET PO SCH ×2 (09:00→17:00)
[2018-03-06] MEDS: ISOSORBIDE MONONITRATE 30MG TABLET SR 24HR PO SCH (09:00)
[2018-03-06] MEDS: NICOTINE 7MG PATCH TD SCH (09:00)
[2018-03-06] MEDS: AMLODIPINE 2.5MG TABLET PO SCH ×2 (09:00→17:00)
[2018-03-06] MEDS: DOCUSATE SODIUM 250MG CAPSULE PO SCH (09:00)
[2018-03-06] MEDS: FOLIC ACID/VITAMIN B COMP W-C TABLET PO SCH (09:00)
[2018-03-06] MEDS: GABAPENTIN 100MG CAPSULE PO SCH (09:00)
[2018-03-06] MEDS: LOSARTAN POTASSIUM 100 MG TABLET PO SCH (09:00)
[2018-03-06] MEDS: TAMSULOSIN HCL 0.4MG SR CAPSULE PO SCH (09:00)
[2018-03-06 10:26] LABS: HEMATOCRIT 29.6 % (42.0-52.0); HEMOGLOBIN 9.4 g/dL (14.0-18.0); MEAN CORPUSCULAR HEMOGLOBIN 23.9 pg (28.0-32.0); MEAN CORPUSCULAR VOLUME 75.2 fL (80.0-94.0); PLATELET 379 x1000/uL (130-400); RED BLOOD CELL COUNT 3.94 mill/uL (4.7-6.1); RED CELL DISTRIBUTION WIDTH 19.7 % (11.6-14.6)
[2018-03-06] MEDS ORDERED: FENTANYL CITRATE/PF 50MCG/ML 2ML VIAL ONE (10:51)
[2018-03-06] MEDS ORDERED: NEOSTIGMINE METHYLSULFATE 1MG/ML 10 ML VIAL ONE (10:51)
[2018-03-06] MEDS ORDERED: ROCURONIUM BROMIDE 10MG/ML VIAL 5ML IV ONE (10:51)
[2018-03-06] MEDS ORDERED: PROPOFOL 200MG/20ML VIAL IV ONE (10:52)
[2018-03-06] MEDS ORDERED: MIDAZOLAM HCL 5 MG/5 ML VIAL ONE (10:52)
[2018-03-06] MEDS ORDERED: GLYCOPYRROLATE 0.2 MG/ML 2ML VIAL ONE (10:52)
[2018-03-06] MEDS ORDERED: MIDAZOLAM HCL 2 MG/2 ML VIAL ONE (10:52)
[2018-03-06] MEDS ORDERED: ONDANSETRON HCL 4MG/2ML INJ ONE (10:52)
[2018-03-06] MEDS ORDERED: PHENYLEPHRINE HCL 10 MG/ML 1ML (IV VIAL) IV ONE (10:52)
[2018-03-06] MEDS ORDERED: CEFAZOLIN SODIUM 1000MG/VIAL ONE (10:52)
[2018-03-06] MEDS ORDERED: SODIUM CHLORIDE 0.9% 10ML VIAL ONE (10:52)
[2018-03-06] MEDS ORDERED: EPHEDRINE SULFATE 50MG/ML VIAL ONE (10:52)
[2018-03-06] MEDS ORDERED: METOCLOPRAMIDE HCL 10MG/2ML VIAL ONE (10:52)
[2018-03-06] MEDS ORDERED: LIDOCAINE HCL/PF 1% 10 MG/ML 5ML VIAL ONE (10:52)
[2018-03-06] MEDS ORDERED: SUCCINYLCHOLINE CHLORIDE 200MG/10ML IV ONE (10:52)
[2018-03-06] MEDS ORDERED: SODIUM BICARBONATE 4% (2.4MEQ) 5ML VIAL IV ONE (11:24)
[2018-03-06] MEDS ORDERED: LIDOCAINE HCL/EPINEPHRINE 1%-EPI 1:100,000 20 ML VIAL ONE (11:24)
[2018-03-06] MEDS ORDERED: LIDOCAINE HCL 1% 20ML VIAL (Pyxis) INJ ONE (11:24)
[2018-03-06] MEDS ORDERED: SODIUM CHLORIDE 0.9% 1,000 ML IV ONE (11:33)
[2018-03-06] MEDS ORDERED: HYDROMORPHONE HCL/PF 2MG/ML CPJ IV PRN ×2 (11:45→15:30)
[2018-03-06] MEDS ORDERED: ONDANSETRON HCL 4MG/2ML INJ IV PRN (11:45)
[2018-03-06] MEDS ORDERED: HYDROMORPHONE HCL/PF 2MG/ML CPJ ONE (13:17)
[2018-03-06 16:00] VITALS: BP 168/80
[2018-03-06] MEDS ORDERED: HYDR100T26 PO (17:05)
[2018-03-06] MEDS ORDERED: APIX5TAB PO (17:05)
[2018-03-06] MEDS ORDERED: SEVE800T8 PO (17:05)
[2018-03-06] MEDS ORDERED: GABA-529 PO (17:05)
[2018-03-06] MEDS ORDERED: COR25 PO (17:05)
[2018-03-06] MEDS ORDERED: AMLO2.5T45 PO (17:05)
[2018-03-06] MEDS ORDERED: TAMS-11 PO (17:05)
[2018-03-06] MEDS ORDERED: ISOS30TA6 PO (17:05)
[2018-03-06] MEDS ORDERED: NICO-786 TD (17:05)
[2018-03-06] MEDS ORDERED: LOSA100T3 PO (17:05)
[2018-03-06] MEDS: CEFAZOLIN 2,000 MG in DEXT 5% WATER 100 ML IV SCH ×2 (17:30→21:51)
[2018-03-06] MEDS ORDERED: HEPARIN SODIUM 1,000 UNIT/1ML VIAL IV NR (19:00)
[2018-03-06 21:45] VITALS: BP 170/95
[2018-03-06] MEDS: CLONIDINE 0.1MG TABLET PO PRN (22:15)
[2018-03-06 23:52] VITALS: BP 150/65
[2018-03-07] MEDS: IPRATROPIUM/ALBUTEROL 0.5-3(2.5)MG/3ML NEB HHN SCH (02:05)
[2018-03-07] MEDS: HYDROCODONE/ACETAMINOPHEN 5/325MG TABLET PO PRN ×2 (03:04→08:05)
[2018-03-07 04:00] VITALS: BP 152/70
[2018-03-07] MEDS: HYDRALAZINE HCL 100MG TABLET PO SCH (06:00)
[2018-03-07] MEDS: BLOOD SUGAR DIAGNOSTIC STRIP TEST SCH (06:55)
[2018-03-07] MEDS: INSULIN LISPRO 100 UNITS/ML SUBCUT SCH (06:56)
[2018-03-07 08:00] VITALS: BP 115/55
[2018-03-07 08:03] VITALS: BP 180/82
[2018-03-07 08:05] VITALS: BP 180/82
[2018-03-07] MEDS: AMLODIPINE 2.5MG TABLET PO SCH (08:43)
[2018-03-07] MEDS: ISOSORBIDE MONONITRATE 30MG TABLET SR 24HR PO SCH (08:43)
[2018-03-07] MEDS: CARVEDILOL 25MG TABLET PO SCH (08:43)
[2018-03-07] MEDS: TAMSULOSIN HCL 0.4MG SR CAPSULE PO SCH (08:44)
[2018-03-07] MEDS: GABAPENTIN 100MG CAPSULE PO SCH (08:44)
[2018-03-07] MEDS: FOLIC ACID/VITAMIN B COMP W-C TABLET PO SCH (08:44)
[2018-03-07] MEDS: DOCUSATE SODIUM 250MG CAPSULE PO SCH (08:44)
[2018-03-07] MEDS: LOSARTAN POTASSIUM 100 MG TABLET PO SCH (08:44)
[2018-03-07] MEDS: APIXABAN 5 MG TABLET PO SCH (08:45)
[2018-03-07] MEDS: SEVELAMER CARBONATE 800 MG TABLET PO SCH (08:46)
[2018-03-07] MEDS: NICOTINE 7MG PATCH TD SCH (08:47)
[2018-03-10] MEDS ORDERED: APIXABAN 5 MG TABLET PO SCH (09:00)
[2018-03-12 13:10] LABS: BARBITURATE SCREEN Negative ug/mL (Cutoff:0.1); BENZODIAZEPINE SCREEN Negative ng/mL (Cutoff:20); OPIATES SCREEN ++POSITIVE++ ng/mL (Cutoff:5); PHENCYCLIDINE SCREEN Negative ng/mL (Cutoff:8)
== END 2018-03-07 12:55 | disposition left against medical advice (07) | DRG 721 ==
LOC: ER 10:49 → EDBEDREQ 11:15 → 8WST 13:54 → EDBEDREQ 13:57 → EDBEDREQTM 13:57 → ENRESERV 17:23
PROVIDERS: ADMIT Internal Medicine; ATTEND Internal Medicine
PROC: 5A1D70Z Performance of Urinary Filtration, Intermittent, Less than 6 Hours Per Day (ICD-10-PCS; 2018-02-27)
PROC: 06HM33Z Insertion of Infusion Device into Right Femoral Vein, Percutaneous Approach (ICD-10-PCS; principal; 2018-02-28)
PROC: B54BZZA Ultrasonography of Right Lower Extremity Veins, Guidance (ICD-10-PCS; 2018-02-28)
PROC: 0JPV3XZ Removal of Tunneled Vascular Access Device from Upper Extremity Subcutaneous Tissue and Fascia, Percutaneous Approach (ICD-10-PCS; 2018-02-28)
PROC: 05PYX3Z Removal of Infusion Device from Upper Vein, External Approach (ICD-10-PCS; 2018-02-28)
PROC: 05JYXZZ Inspection of Upper Vein, External Approach (ICD-10-PCS; 2018-02-28)
PROC: B546ZZA Ultrasonography of Right Subclavian Vein, Guidance (ICD-10-PCS; 2018-02-28)
PROC: B543ZZA Ultrasonography of Right Jugular Veins, Guidance (ICD-10-PCS; 2018-02-28)
PROC: 5A1D70Z Performance of Urinary Filtration, Intermittent, Less than 6 Hours Per Day (ICD-10-PCS; 2018-03-01)
PROC: 5A1D70Z Performance of Urinary Filtration, Intermittent, Less than 6 Hours Per Day (ICD-10-PCS; 2018-03-03)
PROC: 0JH63XZ Insertion of Tunneled Vascular Access Device into Chest Subcutaneous Tissue and Fascia, Percutaneous Approach (ICD-10-PCS; 2018-03-06)
PROC: 06H033Z Insertion of Infusion Device into Inferior Vena Cava, Percutaneous Approach (ICD-10-PCS; 2018-03-06)
PROC: B5191ZA Fluoroscopy of Inferior Vena Cava using Low Osmolar Contrast, Guidance (ICD-10-PCS; 2018-03-06)
PROC: B549ZZA Ultrasonography of Inferior Vena Cava, Guidance (ICD-10-PCS; 2018-03-06)
PROC: 06PYX3Z Removal of Infusion Device from Lower Vein, External Approach (ICD-10-PCS; 2018-03-06)
PROC: 5A1D70Z Performance of Urinary Filtration, Intermittent, Less than 6 Hours Per Day (ICD-10-PCS; 2018-03-06)
PROC: B54MZZA Ultrasonography of Right Upper Extremity Veins, Guidance (ICD-10-PCS; 2018-03-07)
DX: T80.211A Bloodstream infection due to central venous catheter, initial encounter (principal); A41.01 Sepsis due to Methicillin susceptible Staphylococcus aureus; E43 Unspecified severe protein-calorie malnutrition; I13.2 Hypertensive heart and chronic kidney disease with heart failure and with stage 5 chronic kidney disease, or end stage renal disease; G92 Toxic encephalopathy; T82.7XXA Infection and inflammatory reaction due to other cardiac and vascular devices, implants and grafts, initial encounter; N18.6 End stage renal disease; I82.B12 Acute embolism and thrombosis of left subclavian vein; E11.22 Type 2 diabetes mellitus with diabetic chronic kidney disease; E11.65 Type 2 diabetes mellitus with hyperglycemia; Y84.1 Kidney dialysis as the cause of abnormal reaction of the patient, or of later complication, without mention of misadventure at the time of the procedure; F17.200 Nicotine dependence, unspecified, uncomplicated; S00.81XA Abrasion of other part of head, initial encounter; X58.XXXA Exposure to other specified factors, initial encounter; L98.499 Non-pressure chronic ulcer of skin of other sites with unspecified severity; E83.39 Other disorders of phosphorus metabolism; Z53.8 Procedure and treatment not carried out for other reasons; Z53.21 Procedure and treatment not carried out due to patient leaving prior to being seen by health care provider; I50.32 Chronic diastolic (congestive) heart failure; I80.9 Phlebitis and thrombophlebitis of unspecified site; B95.8 Unspecified staphylococcus as the cause of diseases classified elsewhere; F10.10 Alcohol abuse, uncomplicated; D64.9 Anemia, unspecified; I82.B11 Acute embolism and thrombosis of right subclavian vein; Y84.8 Other medical procedures as the cause of abnormal reaction of the patient, or of later complication, without mention of misadventure at the time of the procedure; E11.42 Type 2 diabetes mellitus with diabetic polyneuropathy; E78.00 Pure hypercholesterolemia, unspecified; Z79.2 Long term (current) use of antibiotics; Z79.84 Long term (current) use of oral hypoglycemic drugs; Z91.19 Patient's noncompliance with other medical treatment and regimen; Z79.899 Other long term (current) drug therapy; Z79.1 Long term (current) use of non-steroidal anti-inflammatories (NSAID); Z99.2 Dependence on renal dialysis; Z68.28 Body mass index [BMI] 28.0-28.9, adult; Z79.82 Long term (current) use of aspirin; Y99.8 Other external cause status; Y93.89 Activity, other specified; Z71.6 Tobacco abuse counseling; Y92.098 Other place in other non-institutional residence as the place of occurrence of the external cause
CPT/HCPCS: 36415; 36556; 36558; 36569; 36589; 70551; 71045; 71250; 75827; 76937; 77001; 80048; 80053; 80061; 80202; 80307; 82140; 82550; 82553; 82607; 82746; 82962; 83036; 83690; 83735; 84100; 84439; 84443; 84481; 84484; 85025; 85027; 85610; 85730; 87040; 87077; 93005; 93306; 93971; 94640; 96372; 99152; 99153; 99291; A4216; C1725; C1750; C1752; C1769; C1887; C1893; G0482; J0330; J0690; J0885; J1170; J1642; J1644; J1650; J2250; J2370; J2405; J2704; J2710; J2765; J2997; J3010; J3370; J3490; J7030; J7040; J7050; J7060; J7620

== ENCOUNTER 2018-03-10 09:16 | Inpatient (IN) | payer MEDICAID ==
[~2018-03-10] VITALS: Ht 182.9 cm; Wt 99.8 kg
[~2018-03-10 09:16] MED LIST changes: +AMLO2.5T45 PO; +APIX5TAB PO; +COR25 PO; +LOSA100T3 PO; +METF-414 PO; -METF500T6 PO; +NICO-786 TD; +TAMS-11 PO
[2018-03-10] MEDS ORDERED: CLONIDINE 0.3MG TABLET PO ONE (11:15)
[2018-03-10 11:18] LABS: BASOPHILS % 1.2 % (0.0-2.0); EOSINOPHILS % 2.3 % (0.0-5.0); HEMATOCRIT. 30.2 % (42.0-52.0); HEMOGLOBIN. 9.8 g/dL (14.0-18.0); LYMPHOCYTES % 17.2 % (20.0-50.0); MEAN CORPUSCULAR HEMOGLOBIN 24.2 pg (28.0-32.0); MEAN CORPUSCULAR VOLUME 74.4 fL (80.0-94.0); MEAN PLATELET VOLUME 6.4 fl (7.4-10.4); MONOCYTES % 8.8 % (2.0-8.0); NEUTROPHILS % 70.5 % (40.0-76.0); PLATELET 480 x1000/uL (130-400); RED BLOOD CELL COUNT 4.06 mill/uL (4.7-6.1); RED CELL DISTRIBUTION WIDTH 19.5 % (11.6-14.6)
[2018-03-10 11:28] LABS: CHLORIDE 96 mEq/L (98-107)
[2018-03-10] MEDS ORDERED: HYDRALAZINE 20MG/ML VIAL IV ONE (13:30)
[2018-03-10] MEDS ORDERED: ONDANSETRON HCL 4MG/2ML INJ IV PRN (15:00)
[2018-03-10] MEDS ORDERED: TRAMADOL 50MG TABLET PO PRN (15:00)
[2018-03-10] MEDS ORDERED: ACETAMINOPHEN 325MG TABLET PO PRN (15:00)
[2018-03-10] MEDS ORDERED: DEXTROSE 50% WATER 50ML SYRINGE IV PRN (15:00)
[2018-03-10 16:30] VITALS: BP 213/126
[2018-03-10] MEDS: SEVELAMER CARBONATE 800 MG TABLET PO SCH (17:50)
[2018-03-10] MEDS: INSULIN LISPRO 100 UNITS/ML SUBCUT SCH ×2 (17:50→21:00)
[2018-03-10] MEDS: NIFEDIPINE XL 90MG TAB PO SCH (18:03)
[2018-03-10] MEDS: APIXABAN 5 MG TABLET PO SCH (18:03)
[2018-03-10] MEDS: CLONIDINE 0.1MG TABLET PO PRN (18:03)
[2018-03-10] MEDS: BLOOD SUGAR DIAGNOSTIC STRIP TEST SCH ×2 (18:05→21:56)
[2018-03-10 19:00] VITALS: BP 190/90
[2018-03-10 20:00] VITALS: BP 233/96
[2018-03-10] MEDS: HYDRALAZINE HCL 100MG TABLET PO SCH (22:14)
[2018-03-11 01:40] VITALS: BP 186/100
[2018-03-11] MEDS: CLONIDINE 0.1MG TABLET PO PRN (01:45)
[2018-03-11 06:50] VITALS: BP 189/112
[2018-03-11] MEDS: HYDRALAZINE HCL 100MG TABLET PO SCH (06:52)
[2018-03-11] MEDS: BLOOD SUGAR DIAGNOSTIC STRIP TEST SCH ×2 (06:52→12:21)
[2018-03-11] MEDS: INSULIN LISPRO 100 UNITS/ML SUBCUT SCH ×2 (07:50→12:21)
[2018-03-11 08:25] VITALS: BP 189/91
[2018-03-11] MEDS: SEVELAMER CARBONATE 800 MG TABLET PO SCH (08:50)
[2018-03-11] MEDS: APIXABAN 5 MG TABLET PO SCH (08:52)
[2018-03-11] MEDS: NIFEDIPINE XL 90MG TAB PO SCH (08:56)
[2018-03-11] MEDS ORDERED: LOSARTAN POTASSIUM 100 MG TABLET PO SCH (09:00)
[2018-03-11] MEDS ORDERED: TAMSULOSIN HCL 0.4MG SR CAPSULE PO SCH (09:00)
[2018-03-11 12:00] VITALS: BP 162/91
[2018-03-11 12:53] VITALS: BP 162/91
== END 2018-03-11 12:50 | disposition left against medical advice (07) | DRG 380 ==
LOC: ER 09:16 → 6WST 13:39 → EDBEDREQ 13:45 → ENRESERV 15:16
PROVIDERS: ADMIT Internal Medicine; ATTEND Internal Medicine
DX: E11.649 Type 2 diabetes mellitus with hypoglycemia without coma (principal); L98.499 Non-pressure chronic ulcer of skin of other sites with unspecified severity; G92 Toxic encephalopathy; E11.22 Type 2 diabetes mellitus with diabetic chronic kidney disease; E11.40 Type 2 diabetes mellitus with diabetic neuropathy, unspecified; E11.622 Type 2 diabetes mellitus with other skin ulcer; N18.6 End stage renal disease; I12.0 Hypertensive chronic kidney disease with stage 5 chronic kidney disease or end stage renal disease; D64.9 Anemia, unspecified; F17.210 Nicotine dependence, cigarettes, uncomplicated; Z53.21 Procedure and treatment not carried out due to patient leaving prior to being seen by health care provider; Z79.899 Other long term (current) drug therapy; Z79.82 Long term (current) use of aspirin; Z86.19 Personal history of other infectious and parasitic diseases; Z99.2 Dependence on renal dialysis; Z79.84 Long term (current) use of oral hypoglycemic drugs
CPT/HCPCS: 36415; 71045; 82962; 84484; 93005; 96374; 99285; G0482; J0360

== ENCOUNTER 2018-05-07 10:44 | Inpatient (IN) | payer MEDICAID ==
[~2018-05-07] VITALS: Ht 182.9 cm; Wt 101.2 kg
[~2018-05-07 10:44] MED LIST changes: -AMLO2.5T45 PO
[2018-05-07 12:51] LABS: HEMATOCRIT. 34.1 % (42.0-52.0); HEMOGLOBIN. 10.7 g/dL (14.0-18.0); MEAN CORPUSCULAR HEMOGLOBIN 24.3 pg (28.0-32.0); MEAN CORPUSCULAR VOLUME 77.1 fL (80.0-94.0); MEAN PLATELET VOLUME 7.7 fl (7.4-10.4); PLATELET 291 x1000/uL (130-400); RED BLOOD CELL COUNT 4.42 mill/uL (4.7-6.1); RED CELL DISTRIBUTION WIDTH 24.1 % (11.6-14.6)
[2018-05-07 13:28] LABS: PLATELET ESTIMATE NORMAL
[2018-05-07 15:11] LABS: CHLORIDE 100 mEq/L (98-107)
[2018-05-07] MEDS ORDERED: DEXTROSE 50% WATER 50ML SYRINGE IV NR (15:30)
[2018-05-07] MEDS ORDERED: SODIUM BICARBONATE 8.4% 1 MEQ/ML 50ML SYR IV NR (15:30)
[2018-05-07] MEDS ORDERED: INSULIN REGULAR (HUMULIN R) 300UNITS/3ML IV NR (15:30)
[2018-05-07] MEDS ORDERED: SODIUM POLYSTYRENE SULFONATE 15 G/60 ML BOT PO NR (15:30)
[2018-05-07] MEDS ORDERED: CALCIUM CHLORIDE 1GM/10ML SYR IV NR (15:30)
[2018-05-07] MEDS ORDERED: HYDROCODONE/ACETAMINOPHEN 5/325MG TABLET PO PRN (16:45)
[2018-05-07] MEDS ORDERED: ACETAMINOPHEN 325MG TABLET PO PRN (16:45)
[2018-05-07] MEDS ORDERED: IPRATROPIUM/ALBUTEROL 0.5-3(2.5)MG/3ML NEB INH PRN (16:45)
[2018-05-07] MEDS ORDERED: ONDANSETRON HCL 4MG/2ML INJ IV PRN (16:45)
[2018-05-07] MEDS ORDERED: DOCUSATE SODIUM 100MG CAPSULE PO PRN (16:45)
[2018-05-07] MEDS: CLONIDINE 0.1MG TABLET PO PRN (17:12)
[2018-05-08 01:00] VITALS: BP 168/99
[2018-05-08 04:00] VITALS: BP 204/95
[2018-05-08] MEDS ORDERED: DEXTROSE 50% WATER 50ML SYRINGE IV PRN (04:15)
[2018-05-08] MEDS: CLONIDINE 0.1MG TABLET PO PRN (04:53)
[2018-05-08] MEDS ORDERED: SITA25TA3 PO (05:09)
[2018-05-08] MEDS ORDERED: CLON1PAT38 TD (05:09)
[2018-05-08 06:22] LABS: BASOPHILS % 0.5 % (0.0-2.0); EOSINOPHILS % 1.9 % (0.0-5.0); HEMATOCRIT. 34.3 % (42.0-52.0); HEMOGLOBIN. 10.8 g/dL (14.0-18.0); LYMPHOCYTES % 39.6 % (20.0-50.0); MEAN CORPUSCULAR HEMOGLOBIN 24.3 pg (28.0-32.0); MEAN CORPUSCULAR VOLUME 77.6 fL (80.0-94.0); MEAN PLATELET VOLUME 7.1 fl (7.4-10.4); MONOCYTES % 14.1 % (2.0-8.0); NEUTROPHILS % 43.9 % (40.0-76.0); PLATELET 258 x1000/uL (130-400); RED BLOOD CELL COUNT 4.42 mill/uL (4.7-6.1); RED CELL DISTRIBUTION WIDTH 23.9 % (11.6-14.6)
[2018-05-08] MEDS ORDERED: BLOOD SUGAR DIAGNOSTIC STRIP TEST SCH (06:50)
[2018-05-08 07:09] LABS: CREATINE KINASE MB FRACTION 2.8 ng/mL (0.5-3.6)
[2018-05-08] MEDS ORDERED: INSULIN LISPRO 100 UNITS/ML SUBCUT SCH (07:20)
[2018-05-08 08:00] VITALS: BP 172/99
[2018-05-08] MEDS ORDERED: LOSARTAN POTASSIUM 100 MG TABLET PO SCH (09:00)
[2018-05-08] MEDS ORDERED: AMLODIPINE 5MG TABLET PO SCH (09:00)
[2018-05-08] MEDS ORDERED: NIFEDIPINE XL 60MG TAB PO SCH (09:00)
[2018-05-08] MEDS ORDERED: GABAPENTIN 100MG CAPSULE PO SCH (09:00)
[2018-05-08] MEDS ORDERED: MINOXIDIL 2.5MG TABLET PO SCH (09:00)
[2018-05-08] MEDS ORDERED: CLONIDINE HCL 0.2MG/24HR PATCH TD SCH (09:00)
[2018-05-08] MEDS ORDERED: CARVEDILOL 25MG TABLET PO SCH (09:00)
[2018-05-08] MEDS ORDERED: TAMSULOSIN HCL 0.4MG SR CAPSULE PO SCH (09:00)
[2018-05-08 10:00] VITALS: BP 174/113
[2018-05-08] MEDS ORDERED: HEPARIN SODIUM 1,000 UNIT/1ML VIAL IV NR (10:45)
[2018-05-08] MEDS ORDERED: HYDRALAZINE HCL 100MG TABLET PO SCH (14:00)
[2018-05-08] MEDS ORDERED: METFORMIN HCL 500MG TABLET PO SCH (17:20)
== END 2018-05-08 12:23 | disposition left against medical advice (07) | DRG 425 ==
LOC: ER 10:44 → 3WST 15:05 → EDBEDREQSVC 18:03 → EDBEDREQ 18:03 → ENRESERV 23:03
PROVIDERS: ADMIT Internal Medicine; ATTEND Internal Medicine
PROC: 5A1D70Z Performance of Urinary Filtration, Intermittent, Less than 6 Hours Per Day (ICD-10-PCS; principal; 2018-05-08)
DX: E87.5 Hyperkalemia (principal); I13.2 Hypertensive heart and chronic kidney disease with heart failure and with stage 5 chronic kidney disease, or end stage renal disease; E11.21 Type 2 diabetes mellitus with diabetic nephropathy; E11.40 Type 2 diabetes mellitus with diabetic neuropathy, unspecified; N18.6 End stage renal disease; E44.1 Mild protein-calorie malnutrition; F17.200 Nicotine dependence, unspecified, uncomplicated; E87.1 Hypo-osmolality and hyponatremia; J44.9 Chronic obstructive pulmonary disease, unspecified; E66.9 Obesity, unspecified; E11.22 Type 2 diabetes mellitus with diabetic chronic kidney disease; D63.8 Anemia in other chronic diseases classified elsewhere; I50.32 Chronic diastolic (congestive) heart failure; Z91.19 Patient's noncompliance with other medical treatment and regimen; Z99.2 Dependence on renal dialysis; Z79.899 Other long term (current) drug therapy; Z79.1 Long term (current) use of non-steroidal anti-inflammatories (NSAID); Z68.30 Body mass index [BMI] 30.0-30.9, adult
CPT/HCPCS: 36415; 80048; 80061; 82550; 82553; 82962; 84484; 87070; 96374; 96375; 99291; J1644; J1815; J3490

== ENCOUNTER 2018-05-30 17:24 | Inpatient (IN) | payer MEDICAID ==
[~2018-05-30] VITALS: Ht 175.3 cm; Wt 79.9 kg
[~2018-05-30 17:24] MED LIST changes: +CLON1PAT38 TD; +SITA25TA3 PO
[2018-05-30] MEDS ORDERED: CLONIDINE 0.2MG TABLET PO ONE (18:15)
[2018-05-30 18:40] LABS: CHLORIDE 99 mEq/L (98-107); INR 1.1; PROTHROMBIN TIME 10.7 sec (9.1-11.1)
[2018-05-30 18:43] LABS: BASOPHILS % 0.6 % (0.0-2.0); EOSINOPHILS % 0.9 % (0.0-5.0); HEMOGLOBIN. 10.5 g/dL (14.0-18.0); LYMPHOCYTES % 18.1 % (20.0-50.0); MEAN CORPUSCULAR HEMOGLOBIN 24.4 pg (28.0-32.0); MEAN CORPUSCULAR VOLUME 76.9 fL (80.0-94.0); MEAN PLATELET VOLUME 7.8 fl (7.4-10.4); MONOCYTES % 14.1 % (2.0-8.0); NEUTROPHILS % 66.3 % (40.0-76.0); PLATELET 372 x1000/uL (130-400); RED BLOOD CELL COUNT 4.29 mill/uL (4.7-6.1); RED CELL DISTRIBUTION WIDTH 19.4 % (11.6-14.6)
[2018-05-30] MEDS ORDERED: CALCIUM CHLORIDE 1GM/10ML SYR IV ONE (19:15)
[2018-05-30] MEDS ORDERED: SODIUM POLYSTYRENE SULFONATE 15 G/60 ML BOT PO ONE (19:15)
[2018-05-30] MEDS ORDERED: SODIUM BICARBONATE 8.4% 1 MEQ/ML 50ML SYR IV ONE (19:15)
[2018-05-30] MEDS ORDERED: DEXTROSE 50% WATER 50ML SYRINGE IV ONE ×2 (19:15→21:30)
[2018-05-30] MEDS ORDERED: INSULIN REGULAR (HUMULIN R) 300UNITS/3ML IV ONE (19:15)
[2018-05-30] MEDS ORDERED: ACETAMINOPHEN 325MG TABLET PO ONE (20:00)
[2018-05-30] MEDS ORDERED: ONDANSETRON HCL 4MG/2ML INJ IV PRN (20:45)
[2018-05-30] MEDS ORDERED: CLONIDINE 0.1MG TABLET PO PRN (20:45)
[2018-05-30] MEDS ORDERED: METOPROLOL TARTRATE 50MG TABLET PO SCH (21:00)
[2018-05-30 22:19] VITALS: BP 162/87
[2018-05-30 22:30] VITALS: BP 162/87
[2018-05-30] MEDS ORDERED: DEXTROSE 50% WATER 50ML SYRINGE IV PRN (23:15)
[2018-05-30] MEDS: METOPROLOL TARTRATE 50MG TABLET PO SCH (23:32)
[2018-05-30] MEDS: NIFEDIPINE XL 60MG TAB PO SCH (23:33)
[2018-05-31] VITALS (9 sets, daily range): BP systolic 142–191; BP diastolic 80–116
[2018-05-31] MEDS ORDERED: INSULIN REGULAR (HUMULIN R) UD 100 UNITS/ML SYR IV SCH (07:15)
[2018-05-31] MEDS ORDERED: DEXTROSE 50% WATER 50ML SYRINGE IV SCH (07:15)
[2018-05-31] MEDS ORDERED: SODIUM POLYSTYRENE SULFONATE 15 G/60 ML BOT PO ONE (07:15)
[2018-05-31] MEDS ORDERED: BLOOD SUGAR DIAGNOSTIC STRIP TEST SCH (07:30)
[2018-05-31] MEDS ORDERED: INSULIN LISPRO 100 UNITS/ML SUBCUT SCH (08:00)
[2018-05-31] MEDS: SEVELAMER CARBONATE 800 MG TABLET PO SCH ×3 (08:27→18:19)
[2018-05-31] MEDS: METOPROLOL TARTRATE 50MG TABLET PO SCH ×2 (09:00→21:56)
[2018-05-31] MEDS: NIFEDIPINE XL 60MG TAB PO SCH ×2 (09:00→21:56)
[2018-05-31] MEDS ORDERED: HEPARIN SODIUM 1,000 UNIT/1ML VIAL IV NR (11:30)
[2018-05-31 12:29] LABS: BASOPHILS % 0.5 % (0.0-2.0); EOSINOPHILS % 0.9 % (0.0-5.0); HEMATOCRIT. 33.3 % (42.0-52.0); HEMOGLOBIN. 10.3 g/dL (14.0-18.0); LYMPHOCYTES % 14.8 % (20.0-50.0); MEAN CORPUSCULAR HEMOGLOBIN 23.9 pg (28.0-32.0); MEAN CORPUSCULAR VOLUME 76.8 fL (80.0-94.0); MEAN PLATELET VOLUME 7.8 fl (7.4-10.4); MONOCYTES % 11.7 % (2.0-8.0); NEUTROPHILS % 72.1 % (40.0-76.0); PLATELET 362 x1000/uL (130-400); RED BLOOD CELL COUNT 4.33 mill/uL (4.7-6.1)
[2018-05-31] MEDS: ENOXAPARIN 30MG/0.3ML SYR SUBCUT SCH (13:30)
[2018-05-31] MEDS ORDERED: DEXTROSE 50% WATER 50ML SYRINGE IV PRN (20:30)
[2018-05-31] MEDS: BLOOD SUGAR DIAGNOSTIC STRIP TEST SCH (21:57)
[2018-05-31] MEDS: ACETAMINOPHEN 325MG TABLET PO PRN (21:57)
[2018-06-01] VITALS: BP 155/87
[2018-06-01] MEDS: ACETAMINOPHEN 325MG TABLET PO PRN (05:41)
[2018-06-01] MEDS: BLOOD SUGAR DIAGNOSTIC STRIP TEST SCH (08:03)
[2018-06-01] MEDS: ENOXAPARIN 30MG/0.3ML SYR SUBCUT SCH ×2 (08:44→08:50)
[2018-06-01] MEDS: SEVELAMER CARBONATE 800 MG TABLET PO SCH (08:44)
[2018-06-01] MEDS: NIFEDIPINE XL 60MG TAB PO SCH (08:48)
[2018-06-01] MEDS: METOPROLOL TARTRATE 50MG TABLET PO SCH (08:48)
[2018-06-01 09:00] VITALS: BP 175/86
== END 2018-06-01 10:15 | disposition left against medical advice (07) | DRG 425 ==
LOC: ER 17:24 → 5EST 19:13 → EDBEDREQ 19:14 → EDBEDREQSVC 19:14 → ENRESERV 20:08 → 5EST 23:38
PROVIDERS: ADMIT Internal Medicine; ATTEND Internal Medicine
PROC: 5A1D70Z Performance of Urinary Filtration, Intermittent, Less than 6 Hours Per Day (ICD-10-PCS; principal; 2018-05-31)
DX: E87.5 Hyperkalemia (principal); I13.2 Hypertensive heart and chronic kidney disease with heart failure and with stage 5 chronic kidney disease, or end stage renal disease; E11.22 Type 2 diabetes mellitus with diabetic chronic kidney disease; E11.649 Type 2 diabetes mellitus with hypoglycemia without coma; I50.33 Acute on chronic diastolic (congestive) heart failure; D63.8 Anemia in other chronic diseases classified elsewhere; E83.39 Other disorders of phosphorus metabolism; N18.6 End stage renal disease; F17.200 Nicotine dependence, unspecified, uncomplicated; F19.10 Other psychoactive substance abuse, uncomplicated; Z71.6 Tobacco abuse counseling; Z91.15 Patient's noncompliance with renal dialysis; Z99.2 Dependence on renal dialysis; Z91.19 Patient's noncompliance with other medical treatment and regimen; Z79.84 Long term (current) use of oral hypoglycemic drugs
CPT/HCPCS: 36415; 71045; 80048; 82962; 93005; 93970; 96374; 96375; 99291; J1644; J1650; J1815; J3490

== ENCOUNTER 2018-06-06 15:18 | Emergency (ER) | payer MEDICAID ==
[~2018-06-06] VITALS: Ht 177.8 cm; Wt 110.0 kg
[2018-06-06 15:21] VITALS: BP 194/112
== END 2018-06-06 15:52 | disposition left against medical advice (07) ==
LOC: ER 15:18
DX: R53.1 Weakness (principal); Z53.21 Procedure and treatment not carried out due to patient leaving prior to being seen by health care provider

== ENCOUNTER 2018-06-07 00:31 | Emergency (ER) | payer MEDICAID ==
[~2018-06-07] VITALS: Ht 188 cm; Wt 100.0 kg
[2018-06-07 00:33] VITALS: BP 154/78
== END 2018-06-07 02:23 | disposition left against medical advice (07) ==
LOC: ER 00:39
DX: Z53.21 Procedure and treatment not carried out due to patient leaving prior to being seen by health care provider (principal)
CPT/HCPCS: 93005

== ENCOUNTER 2018-06-08 21:32 | Inpatient (IN) | payer MEDICAID ==
[~2018-06-08] VITALS: Ht 175.3 cm; Wt 96.2 kg
[2018-06-08 23:46] LABS: BASOPHILS % 0.5 % (0.0-2.0); EOSINOPHILS % 0.7 % (0.0-5.0); HEMATOCRIT. 30.7 % (42.0-52.0); HEMOGLOBIN. 9.8 g/dL (14.0-18.0); MEAN CORPUSCULAR HEMOGLOBIN 24.1 pg (28.0-32.0); MEAN CORPUSCULAR VOLUME 75.7 fL (80.0-94.0); MEAN PLATELET VOLUME 7.4 fl (7.4-10.4); MONOCYTES % 10.6 % (2.0-8.0); NEUTROPHILS % 78.2 % (40.0-76.0); PLATELET 392 x1000/uL (130-400); RED BLOOD CELL COUNT 4.06 mill/uL (4.7-6.1); RED CELL DISTRIBUTION WIDTH 18.6 % (11.6-14.6)
[2018-06-08 23:54] LABS: CHLORIDE 95 mEq/L (98-107)
[2018-06-09] MEDS ORDERED: VANCOMYCIN 1 G PREMIX 200 ML IV ONE (00:15)
[2018-06-09] MEDS ORDERED: PIPERACILLIN/TAZ 3.375G PREMIX 50 ML IV ONE (00:15)
[2018-06-09] MEDS ORDERED: CALCIUM GLUCONATE 1,000 MG in DEXT 5% WATER 100 ML IV ONE (00:30)
[2018-06-09] MEDS ORDERED: INSULIN REGULAR (HUMULIN R) 300UNITS/3ML IV ONE (00:30)
[2018-06-09] MEDS ORDERED: DEXTROSE 50% WATER 50ML SYRINGE IV ONE (00:30)
[2018-06-09] MEDS ORDERED: HEPARIN SODIUM 1,000 UNIT/1ML VIAL IV NR (02:45)
[2018-06-09 03:00] VITALS: BP 121/66
[2018-06-09] MEDS ORDERED: DEXTROSE 50% WATER 50ML SYRINGE IV PRN (04:15)
[2018-06-09] MEDS ORDERED: CLONIDINE 0.1MG TABLET PO PRN (04:15)
[2018-06-09] MEDS: BLOOD SUGAR DIAGNOSTIC STRIP TEST SCH ×5 (07:10→21:19)
[2018-06-09] MEDS: INSULIN LISPRO 100 UNITS/ML SUBCUT SCH ×5 (07:40→21:00)
[2018-06-09 08:00] VITALS: BP 154/73
[2018-06-09 12:00] VITALS: BP 109/62
[2018-06-09 13:42] VITALS: BP 135/67
[2018-06-09 16:00] VITALS: BP 138/73
[2018-06-09 16:33] LABS: BASOPHILS % 0.4 % (0.0-2.0); EOSINOPHILS % 0.2 % (0.0-5.0); HEMATOCRIT. 29.4 % (42.0-52.0); HEMOGLOBIN. 9.3 g/dL (14.0-18.0); LYMPHOCYTES % 7.7 % (20.0-50.0); MEAN CORPUSCULAR HEMOGLOBIN 23.6 pg (28.0-32.0); MEAN CORPUSCULAR VOLUME 74.9 fL (80.0-94.0); MEAN PLATELET VOLUME 7.7 fl (7.4-10.4); MONOCYTES % 10.9 % (2.0-8.0); NEUTROPHILS % 80.8 % (40.0-76.0); PLATELET 392 x1000/uL (130-400); RED BLOOD CELL COUNT 3.93 mill/uL (4.7-6.1); RED CELL DISTRIBUTION WIDTH 18.5 % (11.6-14.6)
[2018-06-09 16:47] LABS: CHLORIDE 100 mEq/L (98-107)
[2018-06-09 20:00] VITALS: BP 151/71
[2018-06-09] MEDS ORDERED: EPOETIN ALFA 4000UNITS/ML VIAL SUBCUT SCH (21:00)
[2018-06-09] MEDS ORDERED: SODIUM POLYSTYRENE SULFONATE 15 G/60 ML BOT PO NR (21:00)
[2018-06-09] MEDS: LACTULOSE 20G/30ML UDC PO SCH (21:02)
[2018-06-09] MEDS ORDERED: DIPHENHYDRAMINE 25MG CAPSULE PO PRN (22:15)
[2018-06-09] MEDS ORDERED: DIPHENHYDRAMINE 50MG/ML VIAL IV NR (22:30)
[2018-06-09] MEDS ORDERED: VANCOMYCIN 1 G PREMIX 200 ML IV NR (23:30)
[2018-06-10] VITALS: BP 155/85
[2018-06-10] MEDS: LACTULOSE 20G/30ML UDC PO SCH (06:00)
[2018-06-10] MEDS: INSULIN LISPRO 100 UNITS/ML SUBCUT SCH (07:40)
[2018-06-10 08:00] VITALS: BP 161/82
[2018-06-10] MEDS: BLOOD SUGAR DIAGNOSTIC STRIP TEST SCH (08:09)
== END 2018-06-10 08:55 | disposition left against medical advice (07) | DRG 720 ==
LOC: ER 21:32 → 8WST 06-09 00:41 → EDBEDREQ 06-09 00:43 → ENRESERV 06-09 00:50 → 8WST 06-09 18:28
PROVIDERS: ADMIT Internal Medicine; ATTEND Internal Medicine
PROC: 5A1D70Z Performance of Urinary Filtration, Intermittent, Less than 6 Hours Per Day (ICD-10-PCS; principal; 2018-06-09)
DX: A41.9 Sepsis, unspecified organism (principal); J96.00 Acute respiratory failure, unspecified whether with hypoxia or hypercapnia; G93.41 Metabolic encephalopathy; I13.2 Hypertensive heart and chronic kidney disease with heart failure and with stage 5 chronic kidney disease, or end stage renal disease; N18.6 End stage renal disease; E11.22 Type 2 diabetes mellitus with diabetic chronic kidney disease; E87.5 Hyperkalemia; E83.39 Other disorders of phosphorus metabolism; F10.10 Alcohol abuse, uncomplicated; Y90.9 Presence of alcohol in blood, level not specified; J06.9 Acute upper respiratory infection, unspecified; I50.33 Acute on chronic diastolic (congestive) heart failure; Z53.21 Procedure and treatment not carried out due to patient leaving prior to being seen by health care provider; D64.9 Anemia, unspecified; Z99.2 Dependence on renal dialysis; Z79.01 Long term (current) use of anticoagulants; Z79.82 Long term (current) use of aspirin; Z79.84 Long term (current) use of oral hypoglycemic drugs; Z79.899 Other long term (current) drug therapy; Z86.19 Personal history of other infectious and parasitic diseases
CPT/HCPCS: 36415; 71045; 82140; 82962; 83605; 83880; 84484; 87077; 93970; 96365; 96375; 99285; J0610; J0885; J1200; J1644; J1815; J2543; J3370; J7050; J7060; Q0163

== ENCOUNTER 2018-06-15 00:06 | Inpatient (IN) | payer MEDICAID ==
[2018-06-15] VITALS (7 sets, daily range): BP systolic 158–192; BP diastolic 78–100
[~2018-06-15] VITALS: Ht 182.9 cm; Wt 98.9 kg
[2018-06-15] MEDS ORDERED: DIPHENHYDRAMINE 25MG CAPSULE PO ONE (01:45)
[2018-06-15] MEDS ORDERED: ASPIRIN 81MG TABLET PO ONE (01:45)
[2018-06-15 02:43] LABS: HEMATOCRIT. 24.8 % (42.0-52.0); MEAN CORPUSCULAR HEMOGLOBIN 24.2 pg (28.0-32.0); MEAN CORPUSCULAR VOLUME 74.8 fL (80.0-94.0); MEAN PLATELET VOLUME 7.7 fl (7.4-10.4); PLATELET 389 x1000/uL (130-400); RED BLOOD CELL COUNT 3.32 mill/uL (4.7-6.1); RED CELL DISTRIBUTION WIDTH 17.8 % (11.6-14.6)
[2018-06-15 02:47] LABS: CHLORIDE 102 mEq/L (98-107)
[2018-06-15] MEDS ORDERED: INSULIN REGULAR (HUMULIN R) 300UNITS/3ML IV NR (03:15)
[2018-06-15] MEDS ORDERED: SODIUM BICARBONATE 8.4% 1 MEQ/ML 50ML SYR IV NR (03:15)
[2018-06-15] MEDS ORDERED: CALCIUM CHLORIDE 1GM/10ML SYR IV NR (03:15)
[2018-06-15] MEDS ORDERED: ALBUTEROL (0.083%) 2.5MG/3ML NEB HHN NR (03:15)
[2018-06-15] MEDS ORDERED: DEXTROSE 50% WATER 50ML SYRINGE IV NR (03:15)
[2018-06-15] MEDS ORDERED: HEPARIN 25,000 UNITS PREMIX 500 ML IV PRN (04:15)
[2018-06-15 04:22] LABS: PLATELET ESTIMATE NORMAL
[2018-06-15] MEDS ORDERED: HEPARIN 5000 UNITS/ML VIAL IV SCH ×2 (05:00→05:45)
[2018-06-15] MEDS ORDERED: MAGNESIUM/ALUMINUM HYDROXIDE/SIMETHICONE 30ML UDC PO PRN (08:45)
[2018-06-15] MEDS ORDERED: CLONIDINE 0.1MG TABLET PO PRN (08:45)
[2018-06-15] MEDS ORDERED: DOCUSATE SODIUM 100MG CAPSULE PO PRN (08:45)
[2018-06-15] MEDS ORDERED: IPRATROPIUM/ALBUTEROL 0.5-3(2.5)MG/3ML NEB INH PRN (08:45)
[2018-06-15] MEDS ORDERED: ACETAMINOPHEN 325MG TABLET PO PRN (08:45)
[2018-06-15] MEDS ORDERED: DIPHENHYDRAMINE 50MG/ML VIAL IV PRN (08:45)
[2018-06-15] MEDS ORDERED: ONDANSETRON HCL 4MG/2ML INJ IV PRN (08:45)
[2018-06-15] MEDS ORDERED: ASPIRIN 81MG EC TABLET PO SCH (10:00)
[2018-06-15] MEDS ORDERED: NIFEDIPINE XL 90MG TAB PO SCH (10:00)
[2018-06-15] MEDS ORDERED: LOSARTAN POTASSIUM 100 MG TABLET PO SCH (10:00)
[2018-06-15] MEDS: HYDRALAZINE HCL 50MG TABLET PO SCH ×2 (14:00→22:00)
[2018-06-15] MEDS: HYDROCODONE/ACETAMINOPHEN 5/325MG TABLET PO PRN ×2 (15:29→20:32)
[2018-06-15] MEDS ORDERED: ATORVASTATIN CALCIUM 20MG TABLET PO SCH (21:00)
[2018-06-15] MEDS ORDERED: CARVEDILOL 25MG TABLET PO SCH (21:00)
[2018-06-15] MEDS: INSULIN LISPRO 100 UNITS/ML SUBCUT SCH (22:15)
[2018-06-15] MEDS ORDERED: DEXTROSE 50% WATER 50ML SYRINGE IV PRN (22:15)
[2018-06-15] MEDS ORDERED: HEPARIN SODIUM 1,000 UNIT/1ML VIAL IV SCH (22:30)
[2018-06-15] MEDS: BLOOD SUGAR DIAGNOSTIC STRIP TEST SCH (23:05)
[2018-06-16] VITALS: BP 169/96
[2018-06-16] MEDS: HYDROCODONE/ACETAMINOPHEN 5/325MG TABLET PO PRN (01:25)
[2018-06-16 04:00] VITALS: BP 164/85
[2018-06-16 06:00] VITALS: BP 161/87
[2018-06-16] MEDS: HYDRALAZINE HCL 50MG TABLET PO SCH (06:09)
[2018-06-16] MEDS: INSULIN LISPRO 100 UNITS/ML SUBCUT SCH (07:20)
[2018-06-16] MEDS: BLOOD SUGAR DIAGNOSTIC STRIP TEST SCH (07:44)
[2018-06-16 08:00] VITALS: BP 165/85
[2018-06-29 13:06] LABS: BARBITURATE SCREEN Negative ug/mL (Cutoff:0.1); BENZODIAZEPINE SCREEN Negative ng/mL (Cutoff:20); OPIATES SCREEN ++POSITIVE++ ng/mL (Cutoff:5); PHENCYCLIDINE SCREEN Negative ng/mL (Cutoff:8)
== END 2018-06-16 09:00 | disposition left against medical advice (07) | DRG 190 ==
LOC: ER 00:21 → 3WST 04:06 → ENRESERV 04:40
PROVIDERS: ADMIT Internal Medicine; ATTEND Internal Medicine
PROC: 5A1D70Z Performance of Urinary Filtration, Intermittent, Less than 6 Hours Per Day (ICD-10-PCS; principal; 2018-06-15)
DX: I21.4 Non-ST elevation (NSTEMI) myocardial infarction (principal); I13.2 Hypertensive heart and chronic kidney disease with heart failure and with stage 5 chronic kidney disease, or end stage renal disease; I50.33 Acute on chronic diastolic (congestive) heart failure; E44.0 Moderate protein-calorie malnutrition; E11.22 Type 2 diabetes mellitus with diabetic chronic kidney disease; N18.6 End stage renal disease; E87.5 Hyperkalemia; D63.1 Anemia in chronic kidney disease; F17.200 Nicotine dependence, unspecified, uncomplicated; Z53.21 Procedure and treatment not carried out due to patient leaving prior to being seen by health care provider; M54.9 Dorsalgia, unspecified; F10.10 Alcohol abuse, uncomplicated; Y90.9 Presence of alcohol in blood, level not specified; B96.89 Other specified bacterial agents as the cause of diseases classified elsewhere; L98.499 Non-pressure chronic ulcer of skin of other sites with unspecified severity; G89.29 Other chronic pain; N40.0 Benign prostatic hyperplasia without lower urinary tract symptoms; Z79.82 Long term (current) use of aspirin; Z82.49 Family history of ischemic heart disease and other diseases of the circulatory system; Z91.15 Patient's noncompliance with renal dialysis; Z99.2 Dependence on renal dialysis; Z79.899 Other long term (current) drug therapy; Z79.84 Long term (current) use of oral hypoglycemic drugs
CPT/HCPCS: 36415; 71045; 80307; 82550; 82962; 83735; 83880; 84484; 85379; 87077; 93005; 94640; 96374; 96375; 99291; J1644; J1815; J3490; J7611; Q0163

== ENCOUNTER 2018-06-18 00:37 | Emergency (ER) | payer MEDICAID ==
[~2018-06-18] VITALS: Ht 182.9 cm; Wt 98.0 kg
[2018-06-18 00:42] VITALS: BP 180/96
== END 2018-06-18 10:24 | disposition left against medical advice (07) ==
LOC: ER 00:37
DX: M54.9 Dorsalgia, unspecified (principal); Z53.21 Procedure and treatment not carried out due to patient leaving prior to being seen by health care provider